=== PATIENT | female | born 1940 | race Caucasian/White ===

== ENCOUNTER → 2021-12-21 14:26 | Outpatient (BNVA) | payer MEDICARE, OTHER, SELFPAY | PROVIDERS: PCP Family Medicine; Visit Provider Family Medicine | DX: N19 Unspecified kidney failure (principal); J30.9 Allergic rhinitis, unspecified; E06.3 Autoimmune thyroiditis; E78.5 Hyperlipidemia, unspecified; I10 Essential (primary) hypertension; E11.9 Type 2 diabetes mellitus without complications | CPT/HCPCS: 80053; 80061; 82607; 83036; 84443 ==

== ENCOUNTER 2022-03-28 19:26 | Emergency (ER) | payer MEDICARE, OTHER, SELFPAY ==
[2022-03-28 20:13] VITALS: BP 161/79; PULSE 84; RESP 18; TEMP 36.9; O2SAT 94; BMI 30.4
--- NOTE | 2022-03-28 23:40 | CTR_ITS ---
PROCEDURE INFORMATION: Exam: CT Abdomen And Pelvis Without Contrast Exam date and time: 03/29/2022 12:13 AM Age: 81 years old Clinical indication: Abdominal pain; Generalized; Prior surgery; Surgery type: Thr; Patient HX: C/O diffuse abd pain. ; Additional info: Recurrent abd pain, constipation, n/v TECHNIQUE: Imaging protocol: Computed tomography of the abdomen and pelvis without contrast. Radiation optimization: All CT scans at this facility use at least one of these dose optimization techniques: automated exposure control; mA and/or kV adjustment per patient size (includes targeted exams where dose is matched to clinical indication); or iterative reconstruction. COMPARISON: No relevant prior studies available. RADIATION DOSE METRICS: Total DLP (mGy-cm): 767.43 FINDINGS: Lungs: The visualized lung sadler show mild bibasilar atelectasis. Diaphragm: There is a small sliding hiatal hernia. Liver: The liver is normal in size and homogeneous density. In the right liver lobe, there is a 7 mm simple appearing cyst. In the rosemary hepatis, there is a cystic mass measuring 6 x 3.2 cm that may represent a pancreatic pseudocyst or a pancreatic mass or a gallbladder mass. The common bile duct is not identified separate from this mass. The mass extends from the rosemary hepatis to the duodenal sweep and head of the pancreas. Gallbladder and bile ducts: The gallbladder is distended. There is prominent thickening of the gallbladder wall. No calcified gallstones are identified. Pancreas: There is a thick-walled cystic mass in the head of the pancreas extending to the rosemary hepatis and to the gallbladder. There is adjacent stranding and inflammatory change in the of the celiac axis, duodenal sweep and proximal SMA. The mass extends to the distal left renal vein causing at least partial obstruction as there are retroperitoneal venous collaterals. Spleen: Normal. No splenomegaly. Adrenal glands: There is a mass in the left adrenal gland measuring 3.2 x 2.4 cm. The right renal appears normal. Kidneys and ureters: No evidence of hydronephrosis. There are vascular calcifications in both renal lian. A small nonobstructive calculus would be difficult to exclude. No ureteral calculus is identified. Stomach and bowel: There is thickening of the gastric wall that may be secondary to gastritis (series 4, images 22 - 37). Underdistension may present a similar picture. There is no evidence of small bowel or colonic obstruction. Appendix: No evidence of appendicitis. Intraperitoneal space: No free air. No significant fluid collection. Vasculature: There is extensive atherosclerotic calcification of the abdominal aorta and its branches. No abdominal aortic aneurysm is identified. In the right posterolateral wall of the proximal infrarenal abdominal aorta, there is a penetrating ulcer measuring 1.2 cm deep x 2.2 cm in craniocaudal extent (series 4, image 35; series 9, image 29). There is ectasia of the infrarenal abdominal aorta, measuring 2.6 cm in anteroposterior dimension. Lymph nodes: No enlarged retroperitoneal or mesenteric lymph nodes. Urinary bladder: The bladder shows a normal contour and is free of calcific opacities. There is mild thickening of the bladder wall that may be secondary to cystitis or to is decompressed state. Reproductive: Unremarkable as visualized. Bones/joints: No acute fracture. There is mild dextroconvex rotoscoliosis of the lumbar spine. Multilevel facet arthrosis, degenerative disc diseaseand vacuum disc. There is mild grade 1 anterolisthesis of L4 on L5. There has been a total left hip arthroplasty that appears in near anatomic alignment. Soft tissues: Unremarkable. CT/CT abdomen pelvis wo con [id number] IMPRESSION: 1. A 6 cm mass in the head of the pancreas extending to the gallbladder, rosemary hepatis and celiac axis. It appears to involve the left renal vein near its confluence with the superior vena cava. This may represent pancreatic neoplasm, gallbladder neoplasm or pseudocyst. Neoplasm is favored. 2. Distended gallbladder with a markedly thickened wall without gallstones. This may be secondary to involvement of the gallbladder by the pancreatic mass or the gallbladder may be secondarily inflamed. Primary gallbladder carcinoma is a consideration. Consider correlation with right upper quadrant sonogram to exclude cholesterol gallstones and cholecystitis. Abdominal MRI and MRCP may be helpful for further characterization. 3. There is a 3.2 cm mass in the left adrenal suspicious for metastatic disease. Density measurements are not consistent with a lipid rich adrenal adenoma. 4. A penetrating ulcer of the immediate infrarenal segment of the of the abdominal aorta. Consider non emergent vascular surgery evaluation if clinically indicated. 5. Gastric wall thickening that may be secondary to gastritis or underdistension. Findings were discussed with SRIKANTH SANTIAGO at 03/29/2022 3:33 AM CDT. COMMENTS: Consistent with the [employer]'s Incidental Findings Committee white paper (J Am Elda Radiol 2017): For any incidental adrenal lesion greater than or equal to 1 cm but less than or equal to 4 cm classified in this report as benign, likely benign, or containing fat (including classification as an adenoma or myelolipoma), no follow-up imaging is recommended per consensus recommendations based on imaging criteria. Further lab evaluation could be pursued if warranted based on clinical findings.
--- NOTE | 2022-03-28 23:41 | ED_ITS ---
Documented by User: BRANDEN Brunner 03/29/22 03:40 HPI - Abdominal Pain General: Chief Complaint: Abdominal Pain Stated Complaint: abd pain Time Seen by Provider: 03/28/22 23:33 History of Present Illness: 81-year-old female comes in today for complaints of recurrent abdominal pain. Patient has been treated with Protonix and Carafate with minimal relief. Patient reports better improvement of pain with acetaminophen. Patient appears nontoxic. Patient appears in mild to moderate pain. Review of Systems General: Reports: 10 or more systems reviewed and unremarkable except in HPI and below ENMT: Denies: throat pain GI: Reports: abdominal pain : Denies: difficulty voiding Physical Exam Const: COMMON NORMALS: alert HENMT: COMMON NORMALS: normocephalic HEAD & SCALP: normocephalic Neck/C-Spine: COMMON NORMALS: full ROM Resp: COMMON NORMALS: normal respiratory effort and clear to auscultation bilaterally AUSCULTATION: clear to auscultation bilaterally Cardio: COMMON NORMALS: regular rate and regular rhythm RATE: regular rate RHYTHM: regular rhythm GI: COMMON NORMALS: Soft to palpation INSPECTION: Yes normal to inspection AUSCULTATION: Yes normoactive bowel sounds PALPATION: Yes Soft to palpation, Yes Tenderness to palpation present (GI) (Mild) and Yes Palpable mass present (Right mid upper quadrant) Neuro: SENSORIUM/ORIENTATION: Yes alert Course ED course: 033, CT report come back abnormal with a possible mass of the gallbladder or pancreas, radiologist was recommending a MRCP for further evaluation. I discussed this with Dr. Brizuela who is going to assume care of the patient for further evaluation and disposition of patient. Vital Signs: Vital signs: Vital Signs Temperature 98.5 F 03/29/22 05:00 Pulse Rate 92 03/29/22 06:41 Respiratory Rate 16 03/29/22 06:41 Blood Pressure 155/79 03/29/22 05:00 Pulse Oximetry 95 03/29/22 06:41 Oxygen Delivery Me thod 03/29/22 05:00 [facility] - Abdominal Pain Medical Decision Making She comes in with recurrent abdominal pain. She reports masses that come and go to her mid abdomen. Bowel sounds are present. Skin is warm and dry. Abdomen soft nontender. Differential diagnosis includes but not limited to hernia, constipation, lipoma, carcinoma. Lab Data : 03/28/22 23:55 03/29/22 01:05 Labs/Radiology: Radiology Impressions Abdomen/Pelvis CT 03/28/22 23:40 IMPRESSION: 1. A 6 cm mass in the head of the pancreas extending to the gallbladder, rosemary hepatis and celiac axis. It appears to involve the left renal vein near its confluence with the superior vena cava. This may represent pancreatic neoplasm, gallbladder neoplasm or pseudocyst. Neoplasm is favored. 2. Distended gallbladder with a markedly thickened wall without gallstones. This may be secondary to involvement of the gallbladder by the pancreatic mass or the gallbladder may be secondarily inflamed. Primary gallbladder carcinoma is a consideration. Consider correlation with right upper quadrant sonogram to exclude cholesterol gallstones and cholecystitis. Abdominal MRI and MRCP may be helpful for further characterization. 3. There is a 3.2 cm mass in the left adrenal suspicious for metastatic disease. Density measurements are not consistent with a lipid rich adrenal adenoma. 4. A penetrating ulcer of the immediate infrarenal segment of the of the abdominal aorta. Consider non emergent vascular surgery evaluation if clinically indicated. 5. Gastric wall thickening that may be secondary to gastritis or underdistension. Findings were discussed with SRIKANTH SANTIAGO at 03/29/2022 3:33 AM CDT. COMMENTS: Consistent with the [employer]'s Incidental Findings Committee white paper (J Am Elda Radiol 2017): For any incidental adrenal lesion greater than or equal to 1 cm but less than or equal to 4 cm classified in this report as benign, likely benign, or containing fat (including classification as an adenoma or myelolipoma), no follow-up imaging is recommended per consensus recommendations based on imaging criteria. Further lab evaluation could be pursued if warranted based on clinical findings. ADDENDUM: 03/29/22 0436 An 11 mm nodule is identified in the soft tissues of the right anterior abdominal wall adjacent to the gallbladder, suspicious for a metastatic deposit (series 4, image 36). Abdomen Ultrasound 03/29/22 03:51 IMPRESSION: 1. Findings consistent with acute cholecystitis. 2. 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 3. Mild dilatation of the common bile duct. MRCP may be helpful for evaluation of possible distal common bile duct obstruction by stone or neoplasm, if clinically indicated. Laboratory Results WBC 7.6 10^3/uL (4.0-10.0) 03/28/22 23:55 RBC 4.12 10^6/uL (4.1-5.3) 03/28/22 23:55 Hgb 12.1 g/dL (11.5-15.3) 03/28/22 23:55 Hct 37.2 % (37.0-47.0) 03/28/22 23:55 MCV 90.3 fl (81-99) 03/28/22 23:55 MCH 29.4 pg (28.0-34.0) 03/28/22 23:55 MCHC 32.5 g/dL (30.0-36.0) 03/28/22 23:55 RDW 13.2 % (12.1-15.1) 03/28/22 23:55 Plt Count 325 10^3/cmm (130-400) 03/28/22 23:55 MPV 10.1 fL (7.4-10.4) 03/28/22 23:55 Neut % (Auto) 68.4 % 03/28/22 23:55 Lymph % (Auto) 21.2 % 03/28/22 23:55 [place] % (Auto) 8.1 % 03/28/22 23:55 Eos % (Auto) 1.2 % 03/28/22 23:55 Baso % (Auto) 0.7 % 03/28/22 23:55 Neut # (Auto) 5.22 10^3/uL (1.8-7.7) 03/28/22 23:55 Lymph # (Auto) 1.6 10^3/uL (0.8-4.8) 03/28/22 23:55 [place] # (Auto) 0.6 10^3/uL (0.2-0.9) 03/28/22 23:55 Eos # (Auto) 0.1 10^3/uL (0.0-0.8) 03/28/22 23:55 Baso # (Auto) 0.1 10^3/uL (0.0-0.1) 03/28/22 23:55 Nucleated RBC % (auto) 0 % 03/28/22 23:55 Nucleated RBCs # 0.0 /100WBC 03/28/22 23:55 Sodium 133 mmol/L (136-145) L 03/29/22 01:05 Potassium 3.2 mmol/L (3.5-5.1) L 03/29/22 01:05 Chloride 95 mmol/L (98-107) L 03/29/22 01:05 Carbon Dioxide 21 mmol/L (22-29) L 03/29/22 01:05 Anion Gap 20.2 (5-19) H 03/29/22 01:05 BUN 13 mg/dL (8-23) 03/29/22 01:05 Creatinine 0.7 mg/dL (0.5-0.9) 03/29/22 01:05 GFR Calculation Not Reportable 03/29/22 01:05 Glucose 112 mg/dL (65-115) 03/29/22 01:05 Calculated Osmolality 277 mOsm/kg (285-295) L 03/29/22 01:05 Calcium 10.0 mg/dL (8.5-10.5) 03/29/22 01:05 Total Bilirubin 0.4 mg/dL (0.15-1.2) 03/29/22 01:05 AST 36 U/L (0-32) H 03/29/22 01:05 ALT 14 U/L (0-33) 03/29/22 01:05 Alkaline Phosphatase 109 U/L (35-105) H 03/29/22 01:05 Total Protein 7.2 g/dL (6.6-8.7) 03/29/22 01:05 Albumin 3.8 g/dL (3.5-5.2) 03/29/22 01:05 Globulin 3.4 g/dL (1.3-4.6) 03/29/22 01:05 Lipase 50 U/L (13-60) 03/29/22 01:05 Discharge Plan Discharge Patient Disposition: Home Clinical Impression: Pancreatic mass Condition: Stable Prescriptions: New hydrocodone-acetaminophen 5-325 mg tablet 1 tab PO Q6H PRN (Reason: pain) Qty: 30 0RF ondansetron HCl 4 mg tablet 4 mg PO Q6H PRN (Reason: nausea and vomiting) Qty: 30 0RF No Action sucralfate [Carafate] 1 gram tablet 1 g PO TID Qty: 90 0RF Rx Instructions: take prior to meal up to tid valsartan-hydrochlorothiazide 160-12.5 mg tablet 1 tab PO DAILY montelukast 10 mg tablet 10 mg PO DAILY fenofibrate micronized 200 mg capsule 200 mg PO DAILY meloxicam 7.5 mg tablet 7.5 mg PO BID levothyroxine 25 mcg capsule 25 mcg PO DAILY pantoprazole 40 mg tablet,delayed release (DR/EC) 40 mg PO BID Qty: 60 1RF Rx Instructions: for stomach Discharge Orders: Discharge ED (Routine); Ordered 03/29/22 Ordered By: Steve Manzo Referrals: Remberto Black DO [Primary Care Provider] - Discharge Diet: Advance as tolerated Discharge Activity: Increase activity as tolerated Patient Instructions: Opioid Safety, Pain Management Activity Restrictions/Additional Instructions: Case management make arrangements for you to follow-up with oncology office. Sign Out Sign Out Data: Patient Sign Out occurred on 03/29/22 at 03:40. Patient's care was discussed, and care was transferred from to Micah Herrera MD. Patient Sign Out occurred on 03/29/22 at 06:23. Patient's care was discussed, and care was transferred from to Steve Manzo DO. Coding Level of Care Code ED Technical Support Consultant for Chg Fwd Exam Detailed Documented by User: Micah Herrera MD 03/29/22 18:16 HPI - Abdominal Pain General: Chief Complaint: Abdominal Pain Stated Complaint: abd pain Time Seen by Provider: 03/28/22 23:33 Course Vital Signs: Vital signs: Vital Signs Temperature 98.5 F 03/29/22 05:00 Pulse Rate 92 03/29/22 06:41 Respiratory Rate 16 03/29/22 06:41 Blood Pressure 155/79 03/29/22 05:00 Pulse Oximetry 95 03/29/22 06:41 Oxygen Delivery Me thod 03/29/22 05:00 MDM - Abdominal Pain Medical Decision Making She comes in with recurrent abdominal pain. She reports masses that come and go to her mid abdomen. Bowel sounds are present. Skin is warm and dry. Abdomen soft nontender. Differential diagnosis includes but not limited to hernia, constipation, lipoma, carcinoma. I discussed this case with Nacoh Santiago NP. I reviewed documentation. I personally saw and evaluated the patient. I discussed results of CT imaging including concern for cancer and plan for ultrasound to better evaluate for cholecystitis. Overall challenging situation. Handed off to Dr. Manzo pending completion of ED evaluation for disposition. Micah Herrera MD Emergency Medicine Lab Data : 03/28/22 23:55 03/29/22 01:05 Labs/Radiology: Radiology Impressions Abdomen/Pelvis CT 03/28/22 23:40 IMPRESSION: 1. A 6 cm mass in the head of the pancreas extending to the gallbladder, rosemary hepatis and celiac axis. It appears to involve the left renal vein near its confluence with the superior vena cava. This may represent pancreatic neoplasm, gallbladder neoplasm or pseudocyst. Neoplasm is favored. 2. Distended gallbladder with a markedly thickened wall without gallstones. This may be secondary to involvement of the gallbladder by the pancreatic mass or the gallbladder may be secondarily inflamed. Primary gallbladder carcinoma is a consideration. Consider correlation with right upper quadrant sonogram to exclude cholesterol gallstones and cholecystitis. Abdominal MRI and MRCP may be helpful for further characterization. 3. There is a 3.2 cm mass in the left adrenal suspicious for metastatic disease. Density measurements are not consistent with a lipid rich adrenal adenoma. 4. A penetrating ulcer of the immediate infrarenal segment of the of the abdominal aorta. Consider non emergent vascular surgery evaluation if clinically indicated. 5. Gastric wall thickening that may be secondary to gastritis or underdistension. Findings were discussed with SRIKANTH SANTIAGO at 03/29/2022 3:33 AM CDT. COMMENTS: Consistent with the [employer]'s Incidental Findings Committee white paper (J Am Elda Radiol 2017): For any incidental adrenal lesion greater than or equal to 1 cm but less than or equal to 4 cm classified in this report as benign, likely benign, or containing fat (including classification as an adenoma or myelolipoma), no follow-up imaging is recommended per consensus recommendations based on imaging criteria. Further lab evaluation could be pursued if warranted based on clinical findings. ADDENDUM: 03/29/22 0436 An 11 mm nodule is identified in the soft tissues of the right anterior abdominal wall adjacent to the gallbladder, suspicious for a metastatic deposit (series 4, image 36). Abdomen Ultrasound 03/29/22 03:51 IMPRESSION: 1. Findings consistent with acute cholecystitis. 2. 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 3. Mild dilatation of the common bile duct. MRCP may be helpful for evaluation of possible distal common bile duct obstruction by stone or neoplasm, if clinically indicated. Laboratory Results WBC 7.6 10^3/uL (4.0-10.0) 03/28/22 23:55 RBC 4.12 10^6/uL (4.1-5.3) 03/28/22 23:55 Hgb 12.1 g/dL (11.5-15.3) 03/28/22 23:55 Hct 37.2 % (37.0-47.0) 03/28/22 23:55 MCV 90.3 fl (81-99) 03/28/22 23:55 MCH 29.4 pg (28.0-34.0) 03/28/22 23:55 MCHC 32.5 g/dL (30.0-36.0) 03/28/22 23:55 RDW 13.2 % (12.1-15.1) 03/28/22 23:55 Plt Count 325 10^3/cmm (130-400) 03/28/22 23:55 MPV 10.1 fL (7.4-10.4) 03/28/22 23:55 Neut % (Auto) 68.4 % 03/28/22 23:55 Lymph % (Auto) 21.2 % 03/28/22 23:55 [place] % (Auto) 8.1 % 03/28/22 23:55 Eos % (Auto) 1.2 % 03/28/22 23:55 Baso % (Auto) 0.7 % 03/28/22 23:55 Neut # (Auto) 5.22 10^3/uL (1.8-7.7) 03/28/22 23:55 Lymph # (Auto) 1.6 10^3/uL (0.8-4.8) 03/28/22 23:55 [place] # (Auto) 0.6 10^3/uL (0.2-0.9) 03/28/22 23:55 Eos # (Auto) 0.1 10^3/uL (0.0-0.8) 03/28/22 23:55 Baso # (Auto) 0.1 10^3/uL (0.0-0.1) 03/28/22 23:55 Nucleated RBC % (auto) 0 % 03/28/22 23:55 Nucleated RBCs # 0.0 /100WBC 03/28/22 23:55 Sodium 133 mmol/L (136-145) L 03/29/22 01:05 Potassium 3.2 mmol/L (3.5-5.1) L 03/29/22 01:05 Chloride 95 mmol/L (98-107) L 03/29/22 01:05 Carbon Dioxide 21 mmol/L (22-29) L 03/29/22 01:05 Anion Gap 20.2 (5-19) H 03/29/22 01:05 BUN 13 mg/dL (8-23) 03/29/22 01:05 Creatinine 0.7 mg/dL (0.5-0.9) 03/29/22 01:05 GFR Calculation Not Reportable 03/29/22 01:05 Glucose 112 mg/dL (65-115) 03/29/22 01:05 Calculated Osmolality 277 mOsm/kg (285-295) L 03/29/22 01:05 Calcium 10.0 mg/dL (8.5-10.5) 03/29/22 01:05 Total Bilirubin 0.4 mg/dL (0.15-1.2) 03/29/22 01:05 AST 36 U/L (0-32) H 03/29/22 01:05 ALT 14 U/L (0-33) 03/29/22 01:05 Alkaline Phosphatase 109 U/L (35-105) H 03/29/22 01:05 Total Protein 7.2 g/dL (6.6-8.7) 03/29/22 01:05 Albumin 3.8 g/dL (3.5-5.2) 03/29/22 01:05 Globulin 3.4 g/dL (1.3-4.6) 03/29/22 01:05 Lipase 50 U/L (13-60) 03/29/22 01:05 Discharge Plan Discharge Patient Disposition: Home Clinical Impression: Pancreatic mass Condition: Stable Prescriptions: New hydrocodone-acetaminophen 5-325 mg tablet 1 tab PO Q6H PRN (Reason: pain) Qty: 30 0RF ondansetron HCl 4 mg tablet 4 mg PO Q6H PRN (Reason: nausea and vomiting) Qty: 30 0RF No Action sucralfate [Carafate] 1 gram tablet 1 g PO TID Qty: 90 0RF Rx Instructions: take prior to meal up to tid valsartan-hydrochlorothiazide 160-12.5 mg tablet 1 tab PO DAILY montelukast 10 mg tablet 10 mg PO DAILY fenofibrate micronized 200 mg capsule 200 mg PO DAILY meloxicam 7.5 mg tablet 7.5 mg PO BID levothyroxine 25 mcg capsule 25 mcg PO DAILY pantoprazole 40 mg tablet,delayed release (DR/EC) 40 mg PO BID Qty: 60 1RF Rx Instructions: for stomach Discharge Orders: Discharge ED (Routine); Ordered 03/29/22 Ordered By: Steve Manzo Referrals: Remberto Black DO [Primary Care Provider] - Discharge Diet: Advance as tolerated Discharge Activity: Increase activity as tolerated Patient Instructions: Opioid Safety, Pain Management Activity Restrictions/Additional Instructions: Case management make arrangements for you to follow-up with oncology office. Sign Out Sign Out Data: Patient Sign Out occurred on 03/29/22 at 03:40. Patient's care was discussed, and care was transferred from to Micah Herrera MD. Patient Sign Out occurred on 03/29/22 at 06:23. Patient's care was discussed, and care was transferred from to Steve Manzo DO. Coding Level of Care Code ED Technical Support Consultant for Chg Fwd Exam Detailed Documented by User: Steve Manzo DO 03/29/22 06:42 HPI - Abdominal Pain General: Chief Complaint: Abdominal Pain Stated Complaint: abd pain Time Seen by Provider: 03/28/22 23:33 Course Vital Signs: Vital signs: Vital Signs Temperature 98.5 F 03/29/22 05:00 Pulse Rate 92 03/29/22 06:41 Respiratory Rate 16 03/29/22 06:41 Blood Pressure 155/79 03/29/22 05:00 Pulse Oximetry 95 03/29/22 06:41 Oxygen Delivery Me thod 03/29/22 05:00 MDM - Abdominal Pain Medical Decision Making She comes in with recurrent abdominal pain. She reports masses that come and go to her mid abdomen. Bowel sounds are present. Skin is warm and dry. Abdomen soft nontender. Differential diagnosis includes but not limited to hernia, constipation, lipoma, carcinoma. I discussed this case with Nacho Santiago NP. I reviewed documentation. I personally saw and evaluated the patient. I discussed results of CT imaging including concern for cancer and plan for ultrasound to better evaluate for cholecystitis. Overall challenging situation. Handed off to Dr. Manzo pending completion of ED evaluation for disposition. Micah Herrera MD Emergency Medicine 03/29/2022 6:39 AM Care assumed from Dr. Herrera at change of shift. Chart reviewed. Patient's pain is much improved when I came in the room she was sleeping comfortably. She notes its positional. She is having a hard time with p.o. intake for the last week or more. There is no sign of biliary duct obstruction at this point although there is 6 tensive involvement of the mass from the head of the pancreatic region of the gallbladder around the celiac artery even potentially the stomach and the adrenal gland. Discussed with the patient that this is highly suspicious for pancreatic cancer that but we cannot be 100% sure until it is been confirmed by biopsy. We will discharge patient home with ondansetron and hydrocodone. Encouraged liquid diet including Sustacal and Ensure. Discussed different things that will probably exacerbate her symptoms. She is already found that pretty much any solid food is troublesome. We will have case management make arrangements for her to follow-up with oncology for further work-up and evaluation in the outpatient setting. Medical Records I reviewed the patient's medical records. Lab Data I reviewed the patient's lab results. : 03/28/22 23:55 03/29/22 01:05 Labs/Radiology: Radiology Impressions Abdomen/Pelvis CT 03/28/22 23:40 IMPRESSION: 1. A 6 cm mass in the head of the pancreas extending to the gallbladder, rosemary hepatis and celiac axis. It appears to involve the left renal vein near its confluence with the superior vena cava. This may represent pancreatic neoplasm, gallbladder neoplasm or pseudocyst. Neoplasm is favored. 2. Distended gallbladder with a markedly thickened wall without gallstones. This may be secondary to involvement of the gallbladder by the pancreatic mass or the gallbladder may be secondarily inflamed. Primary gallbladder carcinoma is a consideration. Consider correlation with right upper quadrant sonogram to exclude cholesterol gallstones and cholecystitis. Abdominal MRI and MRCP may be helpful for further characterization. 3. There is a 3.2 cm mass in the left adrenal suspicious for metastatic disease. Density measurements are not consistent with a lipid rich adrenal adenoma. 4. A penetrating ulcer of the immediate infrarenal segment of the of the abdominal aorta. Consider non emergent vascular surgery evaluation if clinically indicated. 5. Gastric wall thickening that may be secondary to gastritis or underdistension. Findings were discussed with SRIKANTH SANTIAGO at 03/29/2022 3:33 AM CDT. COMMENTS: Consistent with the [employer]'s Incidental Findings Committee white paper (J Am Elda Radiol 2017): For any incidental adrenal lesion greater than or equal to 1 cm but less than or equal to 4 cm classified in this report as benign, likely benign, or containing fat (including classification as an adenoma or myelolipoma), no follow-up imaging is recommended per consensus recommendations based on imaging criteria. Further lab evaluation could be pursued if warranted based on clinical findings. ADDENDUM: 03/29/22 0436 An 11 mm nodule is identified in the soft tissues of the right anterior abdominal wall adjacent to the gallbladder, suspicious for a metastatic deposit (series 4, image 36). Abdomen Ultrasound 03/29/22 03:51 IMPRESSION: 1. Findings consistent with acute cholecystitis. 2. 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 3. Mild dilatation of the common bile duct. MRCP may be helpful for evaluation of possible distal common bile duct obstruction by stone or neoplasm, if clinically indicated. Laboratory Results WBC 7.6 10^3/uL (4.0-10.0) 03/28/22 23:55 RBC 4.12 10^6/uL (4.1-5.3) 03/28/22 23:55 Hgb 12.1 g/dL (11.5-15.3) 03/28/22 23:55 Hct 37.2 % (37.0-47.0) 03/28/22 23:55 MCV 90.3 fl (81-99) 03/28/22 23:55 MCH 29.4 pg (28.0-34.0) 03/28/22 23:55 MCHC 32.5 g/dL (30.0-36.0) 03/28/22 23:55 RDW 13.2 % (12.1-15.1) 03/28/22 23:55 Plt Count 325 10^3/cmm (130-400) 03/28/22 23:55 MPV 10.1 fL (7.4-10.4) 03/28/22 23:55 Neut % (Auto) 68.4 % 03/28/22 23: Lymph % (Auto) 21.2 % 03/28/22 23: [place] % (Auto) 8.1 % 03/28/22 23: Eos % (Auto) 1.2 % 03/28/22 23: Baso % (Auto) 0.7 % 03/28/22 23: Neut # (Auto) 5.22 10^3/uL (1.8-7.7) 03/28/22 23:55 Lymph # (Auto) 1.6 10^3/uL (0.8-4.8) 03/28/22 23:55 [place] # (Auto) 0.6 10^3/uL (0.2-0.9) 03/28/22 23:55 Eos # (Auto) 0.1 10^3/uL (0.0-0.8) 03/28/22 23: Baso # (Auto) 0.1 10^3/uL (0.0-0.1) 03/28/22 23: Nucleated RBC % (auto) 0 % 03/28/22 23: Nucleated RBCs # 0.0 /100WBC 03/28/22 23:55 Sodium 133 mmol/L (136-145) L 03/29/22 01:05 Potassium 3.2 mmol/L (3.5-5.1) L 03/29/22 01:05 Chloride 95 mmol/L (98-107) L 03/29/22 01:05 Carbon Dioxide 21 mmol/L (22-29) L 03/29/22 01:05 Anion Gap 20.2 (5-19) H 03/29/22 01:05 BUN 13 mg/dL (8-23) 03/29/22 01:05 Creatinine 0.7 mg/dL (0.5-0.9) 03/29/22 01:05 GFR Calculation Not Reportable 03/29/22 01:05 Glucose 112 mg/dL (65-115) 03/29/22 01:05 Calculated Osmolality 277 mOsm/kg (285-295) L 03/29/22 01:05 Calcium 10.0 mg/dL (8.5-10.5) 03/29/22 01:05 Total Bilirubin 0.4 mg/dL (0.15-1.2) 03/29/22 01:05 AST 36 U/L (0-32) H 03/29/22 01:05 ALT 14 U/L (0-33) 03/29/22 01:05 Alkaline Phosphatase 109 U/L (35-105) H 03/29/22 01:05 Total Protein 7.2 g/dL (6.6-8.7) 03/29/22 01:05 Albumin 3.8 g/dL (3.5-5.2) 03/29/22 01:05 Globulin 3.4 g/dL (1.3-4.6) 03/29/22 01:05 Lipase 50 U/L (13-60) 03/29/22 01:05 Discharge Plan Discharge Patient Disposition: Home Clinical Impression: Pancreatic mass Condition: Stable Prescriptions: New hydrocodone-acetaminophen 5-325 mg tablet 1 tab PO Q6H PRN (Reason: pain) Qty: 30 0RF ondansetron HCl 4 mg tablet 4 mg PO Q6H PRN (Reason: nausea and vomiting) Qty: 30 0RF No Action sucralfate [Carafate] 1 gram tablet 1 g PO TID Qty: 90 0RF Rx Instructions: take prior to meal up to tid valsartan-hydrochlorothiazide 160-12.5 mg tablet 1 tab PO DAILY montelukast 10 mg tablet 10 mg PO DAILY fenofibrate micronized 200 mg capsule 200 mg PO DAILY meloxicam 7.5 mg tablet 7.5 mg PO BID levothyroxine 25 mcg capsule 25 mcg PO DAILY pantoprazole 40 mg tablet,delayed release (DR/EC) 40 mg PO BID Qty: 60 1RF Rx Instructions: for stomach Discharge Orders: Discharge ED (Routine); Ordered 03/29/22 Ordered By: Steve Manzo Referrals: Remberto Black DO [Primary Care Provider] - Discharge Diet: Advance as tolerated Discharge Activity: Increase activity as tolerated Patient Instructions: Opioid Safety, Pain Management Activity Restrictions/Additional Instructions: Case management make arrangements for you to follow-up with oncology office. Sign Out Sign Out Data: Patient Sign Out occurred on 03/29/22 at 03:40. Patient's care was discussed, and care was transferred from to Micah Herrera MD. Patient Sign Out occurred on 03/29/22 at 06:23. Patient's care was discussed, and care was transferred from to Steve Manzo DO. Coding Level of Care Code ED Technical Support Consultant for Chg Fwd Exam Detailed
[2022-03-29] LABS: Basophils # 0.1 10^3/uL (0.0-0.1); Basophils % 0.7 %; Eosinophils # 0.1 10^3/uL (0.0-0.8); Eosinophils % 1.2 %; Hematocrit 37.2 % (37.0-47.0); Hemoglobin 12.1 g/dL (11.5-15.3); Lymphocytes # 1.6 10^3/uL (0.8-4.8); Lymphocytes % 21.2 %; Mean Corpuscular HGB Conc 32.5 g/dL (30.0-36.0); Mean Corpuscular Hemoglobin 29.4 pg (28.0-34.0); Mean Corpuscular Volume 90.3 fl (81-99); Mean Platelet Volume 10.1 fL (7.4-10.4); Monocytes # 0.6 10^3/uL (0.2-0.9); Monocytes % 8.1 %; Neutrophils # 5.22 10^3/uL (1.8-7.7); Neutrophils % 68.4 %; Nucleated Red Blood Cells % 0 %; Platelet Count 325 10^3/cmm (130-400); Red Blood Count 4.12 10^6/uL (4.1-5.3); Red Cell Distribution Width 13.2 % (12.1-15.1); White Blood Count 7.6 10^3/uL (4.0-10.0)
[2022-03-29 02:01] LABS: Alanine Aminotransferase 14 U/L (0-33); Albumin Level 3.8 g/dL (3.5-5.2); Alkaline Phosphatase 109 U/L (35-105); Aspartate Amino Transferase 36 U/L (0-32); Blood Urea Nitrogen 13 mg/dL (8-23); Carbon Dioxide 21 mmol/L (22-29); Globulin 3.4 g/dL (1.3-4.6); Glucose 112 mg/dL (65-115); Lipase 50 U/L (13-60); Total Bilirubin 0.4 mg/dL (0.15-1.2); Total Protein 7.2 g/dL (6.6-8.7)
[2022-03-29 02:29] LABS: Chloride 95 mmol/L (98-107); Osmolality Calculated 277 mOsm/kg (285-295); Potassium 3.2 mmol/L (3.5-5.1); Sodium 133 mmol/L (136-145)
[2022-03-29 02:32] LABS: Anion Gap 20.2 (5-19)
[2022-03-29] MEDS: morphine 4 mg/mL SDV 1 mL 2 MG IVP (02:49)
[2022-03-29] MEDS: ondansetron 2 mg/ML SDV 2 mL 4 MG IVP (02:49)
[2022-03-29] MEDS: sodium chloride 0.9% 500 ML 999 ML IV (02:49)
--- NOTE | 2022-03-29 03:51 | USR_ITS ---
PROCEDURE INFORMATION: Exam: US Abdomen, Limited; Right Upper Quadrant Exam date and time: 03/29/2022 4:18 AM Age: 81 years old Clinical indication: Abdominal pain; Other: Chronic ruq pain x 2 months; Additional info: Ruq, eval cholecystitis if possible TECHNIQUE: Imaging protocol: Real time ultrasound of the abdomen with image documentation. Limited exam focused on the right upper quadrant. COMPARISON: CT abdomen pelvis wo con [id number] 03/29/2022 12:13 AM FINDINGS: Liver: The liver is normal in size, measuring 16.7 cm in length. It shows normal homogeneous echotexture. Gallbladder: Markedly enlarged gallbladder measuring 17 cm in length. There is layering sludge and the are multiple shadowing, likely cholesterol gallstones. The gallbladder wall thickness is 8 mm, abnormal. The assembler installer structures reports a positive Bazzi's sign. Biliary ducts: The common bile duct measures 10 mm in diameter, mildly enlarged. Pancreas: The pancreas appears unremarkable where seen. Right kidney: The right kidney measures 11.4 x 5.4 x 4.9 cm. There is no hydronephrosis. No renal calculi identified. There is normal renal cortical thickness of 1.6 cm. There is normal renal echogenicity. Aorta: There is no abdominal aortic aneurysm. Portal venous: There is hepatopetal flow in the portal vein. Intraperitoneal space: There is mild perihepatic ascites. US/US abdomen limited [id number] IMPRESSION: 1. Findings consistent with acute cholecystitis. 2. 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 3. Mild dilatation of the common bile duct. MRCP may be helpful for evaluation of possible distal common bile duct obstruction by stone or neoplasm, if clinically indicated.
[2022-03-29 05:00] VITALS: BP 155/79; PULSE 80; RESP 18; TEMP 36.9; O2SAT 95
[2022-03-29 06:41] VITALS: PULSE 92; RESP 16; O2SAT 95
--- NOTE | 2022-03-30 13:31 | DCPLANNER ---
sap project manager had message to schedule a follow up appointment for patient with oncology. sap project manager called Jessica, referral at [facility]. Patients information will be printed and reviewed. Clinic will call patient with appointment information. sap project manager was told that patient would need to follow up with her primary care physician, so additional tests could be ordered. sap project manager called [facility], spoke with Dr. Black's nurse. sap project manager let clinic know that patient was seen in the ER and that patient was referred to oncology. Patient has an appointment scheduled with Dr. Black next week.
== END 2022-03-29 06:44 | disposition home or self-care (01) ==
PROVIDERS: Nurse Practitioner Family; Emergency Provider Family Medicine; PCP Family Medicine
DX: K86.9 Disease of pancreas, unspecified (principal); K82.8 Other specified diseases of gallbladder; K83.8 Other specified diseases of biliary tract; E27.9 Disorder of adrenal gland, unspecified
CPT/HCPCS: 74176; 76705; 80053; 83690; 85025; 96361; 96374; 96375; 99285; J2270; J2405; J7040

== ENCOUNTER 2022-04-23 11:46 | Inpatient (IN) | payer MEDICARE, OTHER, SELFPAY ==
[2022-04-23] VITALS (12 sets, daily range): BP systolic 140–160; BP diastolic 51–78; PULSE 86–95; RESP 14–18; TEMP 36.6–36.8; O2SAT 90–97; BMI 26.6
--- NOTE | 2022-04-23 11:49 | ED_ITS ---
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 Patient tells me that symptoms has been going on for the last 2 weeks however due to significance of pain, patient said to come to the emergency room. Patient reports significant nausea vomiting decreased p.o. intake. Patient tells me she has not been able to hold anything down. Patient has not establish care with any oncologist. Patient denies any fever/chills, cough cough, diarrhea, melena/hematochezia. Denies any chest pain, shortness breath or palpitation. Onset: 2 weeks ago Duration:2 weeks Location:home Severity:moderate Associated symptoms: Reports nausea and vomiting; Deny chest pain, dyspnea, rash or palpitations Review of Systems Const: Denies: fever(s) or chills Eyes: Denies: change in vision ENMT: Denies: mouth pain Card: Denies: chest pain or palpitations Resp: Denies: dyspnea or non-productive cough GI: Reports: abdominal pain (+epigastric abd pain), nausea and vomiting; Denies: diarrhea : Denies: dysuria Musc: Denies: extremity pain Skin/Breast: Denies: rash or new lesions Neuro: Denies: weakness in extremities Psych: Reports: other (Normal mood) Homero/Lymph: Denies: easy bruising [facility] ED PFSH: Medical History (Updated 04/23/22 @ 12:08 by Trevon Fernandez MD) Hypertension Pancreatic mass Social History (Updated 04/23/22 @ 12:08 by Trevon Fernandez MD) Smoking and tobacco status: never smoked Alcohol intake: never Substance/Drug Use: never Physical Exam Const: COMMON NORMALS: alert HENMT: COMMON NORMALS: atraumatic HEAD & SCALP: atraumatic MOUTH: moist mucous membranes abnormal Eye: COMMON NORMALS: EOMs intact bilaterally and conjunctivae normal CONJUNCTIVA: Yes conjunctivae normal Neck/C-Spine: COMMON NORMALS: full ROM and supple Resp: COMMON NORMALS: normal respiratory effort and clear to auscultation bilaterally AUSCULTATION: clear to auscultation bilaterally Cardio: COMMON NORMALS: regular rate RATE: regular rate GI: COMMON NORMALS: Soft to palpation PALPATION: Yes Soft to palpation OTHER: + Moderate tenderness palpation in the midepigastric and right upper quadrant area, firm mass appreciated on palpation of the right upper quadrant, mild tenderness. CVA tenderness or McBurney's point tenderness. Extremity: COMMON NORMALS: full ROM Neuro: SENSORIUM/ORIENTATION: Yes alert MOTOR EXAM: No Abnormal motor strength present and Other motor observations present (no focal motor deficits) Psych: COMMON NORMALS: speech normal SPEECH: Yes normal speech MOOD & AFFECT: Yes euthymic mood Course Vital Signs: Vital signs: Vital Signs Temperature 97.9 F 04/23/22 11:47 Pulse Rate 86 04/23/22 11:47 Respiratory Rate 15 04/23/22 13:23 Blood Pressure 160/78 04/23/22 12:34 Pulse Oximetry 97 04/23/22 11:47 Oxygen Delivery Me thod 04/23/22 11:47 MDM - General Adult Medical Decision Making Patient is an 81-year-old female with a 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 She has right upper quad abdominal fullness and moderate to palpation the right upper quadrant and midepigastric area. White count 5.7. Potassium 3.0. UA is consistent with UTI. Given the fact the patient has had nausea vomiting and decreased p.o. intake in the setting of UTI recently diagnosed cancer, patient will be mated to hospital for further work-up of all of these things. S/p ceftraixone in the ED. Disposition: admission Lab Data : 04/23/22 12:37 04/23/22 12:37 Radiology Impressions Abdomen/Pelvis CT 04/23/22 11:59 IMPRESSION: 1. 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 The soft tissue component extends into the gallbladder neck region and probably into the periportal/caudate hepatic parenchyma with obstruction of the intrahepatic bile ducts at the hepatic hilar level. Another large intrahepatic lesion is noted in the left lobe may represent additional area of tumor extension or metastatic disease/multifocal malignancy such as cholangiocarcinoma. There is regional vascular involvement as described above. Primary malignancy arising from the pancreatic head is much less likely. No pancreatic ductal dilatation. 2. Solid subcutaneous soft tissue nodule in the anterior right upper quadrant and left adrenal mass, suspicious for metastatic disease. 3. Nonacute aortic findings as above. 4. Coronary calcification. Laboratory Results WBC 5.7 10^3/uL (4.0-10.0) 04/23/22 12:37 RBC 4.48 10^6/uL (4.1-5.3) 04/23/22 12:37 Hgb 12.9 g/dL (11.5-15.3) 04/23/22 12:37 Hct 40.1 % (37.0-47.0) 04/23/22 12:37 MCV 89.5 fl (81-99) 04/23/22 12:37 MCH 28.8 pg (28.0-34.0) 04/23/22 12:37 MCHC 32.2 g/dL (30.0-36.0) 04/23/22 12:37 RDW 14.3 % (12.1-15.1) 04/23/22 12:37 Plt Count 300 10^3/cmm (130-400) 04/23/22 12:37 MPV 10.3 fL (7.4-10.4) 04/23/22 12:37 Neut % (Auto) 76.7 % 04/23/22 12:37 Lymph % (Auto) 14.5 % 04/23/22 12:37 Allen % (Auto) 7.6 % 04/23/22 12:37 Eos % (Auto) 0.4 % 04/23/22 12:37 Baso % (Auto) 0.4 % 04/23/22 12:37 Neut # (Auto) 4.35 10^3/uL (1.8-7.7) 04/23/22 12:37 Lymph # (Auto) 0.8 10^3/uL (0.8-4.8) 04/23/22 12:37 Allen # (Auto) 0.4 10^3/uL (0.2-0.9) 04/23/22 12:37 Eos # (Auto) 0.0 10^3/uL (0.0-0.8) 04/23/22 12:37 Baso # (Auto) 0.0 10^3/uL (0.0-0.1) 04/23/22 12:37 Nucleated RBC % (auto) 0 % 04/23/22 12:37 Nucleated RBCs # 0.0 /100WBC 04/23/22 12:37 Sodium 137 mmol/L (136-145) 04/23/22 12:37 Potassium 3.0 mmol/L (3.5-5.1) L 04/23/22 12:37 Chloride 95 mmol/L (98-107) L 04/23/22 12:37 Carbon Dioxide 20 mmol/L (22-29) L 04/23/22 12:37 Anion Gap 25.0 (5-19) H 04/23/22 12:37 BUN 23 mg/dL (8-23) 04/23/22 12:37 Creatinine 0.6 mg/dL (0.5-0.9) 04/23/22 12:37 GFR Calculation Not Reportable 04/23/22 12:37 Glucose 133 mg/dL (65-115) H 04/23/22 12:37 Calculated Osmolality 290 mOsm/kg (285-295) 04/23/22 12:37 Calcium 9.2 mg/dL (8.5-10.5) 04/23/22 12:37 Total Bilirubin 0.6 mg/dL (0.15-1.2) 04/23/22 12:37 AST 39 U/L (0-32) H 04/23/22 12:37 ALT 10 U/L (0-33) 04/23/22 12:37 Alkaline Phosphatase 128 U/L (35-105) H 04/23/22 12:37 Troponin T Baseline 48 ng/L (0-10) H 04/23/22 12:37 Troponin T 120 Minute 45.91 ng/L (0-10) H 04/23/22 14:39 Delta Troponin T -2.09 ABS# (0-10) L 04/23/22 14:39 Total Protein 6.5 g/dL (6.6-8.7) L 04/23/22 12:37 Albumin 3.0 g/dL (3.5-5.2) L 04/23/22 12:37 Globulin 3.5 g/dL (1.3-4.6) 04/23/22 12:37 Lipase 35 U/L (13-60) 04/23/22 12:37 Urine Color Yellow (Yellow) 04/23/22 13:07 Urine Appearance Hazy (CLEAR) A 04/23/22 13:07 Urine pH 6.5 (5-7) 04/23/22 13:07 Ur Specific [place] 1.015 (1.005-1.030) 04/23/22 13:07 Urine Protein Neg (Negative) 04/23/22 13:07 Urine Glucose (UA) Norm (Normal) 04/23/22 13:07 Urine Ketones 1+ (Negative) H 04/23/22 13:07 Urine Blood Neg (Negative) 04/23/22 13:07 Urine Nitrate Positive (Negative) H 04/23/22 13:07 Urine Bilirubin Neg (Negative) 04/23/22 13:07 Urine Urobilinogen 8 mg/dL (Negative) H 04/23/22 13:07 Ur Leukocyte Esterase 1+ (Negative) H 04/23/22 13:07 Urine RBC None /hpf (0-2) 04/23/22 13:07 Urine WBC 15-25 /hpf (0-5) H 04/23/22 13:07 Ur Squamous Epith Cells 5-10 /hpf (0-5) H 04/23/22 13:07 Amorphous Sediment Not Reportable 04/23/22 13:07 Urine Bacteria 3+ /hpf (NONE) H 04/23/22 13:07 Imaging Data Other Imaging: Radiologist's impression: [place] [address] CT Scan Report Signed Patient: Alexus Crowley Unit #: [id number] : 1940 Age/Sex: 81 / F ADM Date: 04/23/22 Loc: ER Room/Bed: Attending Dr: Ordering Provider/Ordering MD: Trevon Fernandez MD Date of Service: 04/23/22 Procedure(s): CT abdomen pelvis w con* [id number] Accession Number(s): [id number] Report Number: [id number] PROCEDURE INFORMATION: Exam: CT Abdomen And Pelvis With Contrast Exam date and time: 04/23/2022 1:43 PM Age: 81 years old Clinical indication: Abdominal pain; Additional info: Abd pain TECHNIQUE: Imaging protocol: Computed tomography of the abdomen and pelvis with contrast. Radiation optimization: All CT scans at this facility use at least one of these dose optimization techniques: automated exposure control; mA and/or kV adjustment per patient size (includes targeted exams where dose is matched to clinical indication); or iterative reconstruction. Contrast material: OMNIPAQUE 350; Contrast volume: 100 ml; Contrast route: INTRAVENOUS (IV);? COMPARISON: CT abdomen pelvis wo con [id number] 03/29/2022 12:13 AM RADIATION DOSE METRICS: Total DLP (mGy-cm): 668.34 FINDINGS: Heart: Mild cardiomegaly with coronary calcification. Liver: Liver is normal in size without cirrhosis. There is a heterogeneous mass occupying the inferior left lobe measuring about 8.5 by 6.4 cm suspicious for malignancy. Another heterogeneous soft tissue mass is noted in the right upper quadrant which may be arising from the gallbladder and extending into the posterior aspect of the periportal liver parenchyma/caudate lobe. The solid-appearing component is seen more anteriorly, measuring about 9.7 x 4.3 cm, exerting mass effect on the main portal vein and proximal right portal vein with significant luminal narrowing. The lower density component appears to be contiguous with a distended gallbladder and is located more posteriorly, measuring 6.5 by 4.3 cm exerting mass effect on the IVC and abutting the right lateral margin of proximal SMA and main portal vein. The left renal vein/IVC junction appears very narrowed and is probably extrinsically compressed. There is a heterogeneous soft tissue mass measuring 2.6 by 2.4 cm, likely exophytic hepatic lesion arising from the posterior left hepatic lobe abutting the pancreatic body region, series 4, image 28. There is also a hypodense hepatic lesion in the medial inferior right hepatic lobe measuring 7 mm, series 4, image 30 which is indeterminate. Gallbladder and bile ducts: There is minimal intrahepatic bile duct dilatation possibly related to biliary obstruction in the hepatic hilar region. Extrahepatic bile duct is partially visualized and is normal in caliber measuring about 4 mm. Pancreas: The visualized chronic parenchyma appears somewhat diffusely atrophic. The pancreatic head and uncinate process is contiguous with or abutting the soft tissue mass in the rosemary hepatis region however it is probably not the primary source of malignancy. Spleen: Normal. No splenomegaly. Adrenal glands: Heterogeneous left adrenal mass suspicious for metastasis, measuring 3.4 by 2.5 cm. Kidneys and ureters: No obstructing calculus. No hydronephrosis. Stomach and bowel: The proximal duodenum and distal gastric antrum is extrinsically compressed. No obvious bowel wall thickening, bowel obstruction or pneumatosis. Moderate stool burden with colonic diverticulosis. Appendix: No evidence of appendicitis. Intraperitoneal space: No free air or ascites. Vasculature: There is a saccular aortic aneurysmal dilatation arising from the right lateral aspect slightly below the renal artery origin, measuring 3.2 by 2.7 cm. Another small fusiform abdominal aortic aneurysm is noted more inferiorly, measuring 2.7 by 2.4 cm. Suprarenal aorta measures about 2.2 cm. Extensive arterial calcification. Lymph nodes: No enlarged lymph nodes. Urinary bladder: Unremarkable as visualized. Reproductive: Normal uterine contour. No adnexal region masses. Bones/joints: Metallic surgical hardware in left hip resulting in streak artifacts partially obscuring adjacent anatomy. Osteopenia. Multilevel vertebral disc degeneration and endplate osteophytes. No acute osseous findings otherwise. Soft tissues: Heterogeneous subcutaneous soft tissue nodules suspicious for metastatic disease in the anterior right upper quadrant measuring 14 x 17 mm. Tiny fat-containing umbilical hernia. CT/CT abdomen pelvis w con* [id number] IMPRESSION: 1. 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 The soft tissue component extends into the gallbladder neck region and probably into the periportal/caudate hepatic parenchyma with obstruction of the intrahepatic bile ducts at the hepatic hilar level. Another large intrahepatic lesion is noted in the left lobe may represent additional area of tumor extension or metastatic disease/multifocal malignancy such as cholangiocarcinoma. There is regional vascular involvement as described above. Primary malignancy arising from the pancreatic head is much less likely. No pancreatic ductal dilatation. 2. Solid subcutaneous soft tissue nodule in the anterior right upper quadrant and left adrenal mass, suspicious for metastatic disease. 3. Nonacute aortic findings as above. 4. Coronary calcification. ? Dictated By: Kenneth Paris MD Signed By: Kenneth Paris MD Signed Date/Time: 04/23/22 1549 Discharge Plan Discharge Patient Disposition: Admitted As Inpatient Clinical Impression: Abdominal pain, Nausea & vomiting Condition: Stable Coding Level of Care Code ED Side Show Entertainer for Chg Fwd Exam Comprehensive
--- NOTE | 2022-04-23 11:59 | CTR_ITS ---
PROCEDURE INFORMATION: Exam: CT Abdomen And Pelvis With Contrast Exam date and time: 04/23/2022 1:43 PM Age: 81 years old Clinical indication: Abdominal pain; Additional info: Abd pain TECHNIQUE: Imaging protocol: Computed tomography of the abdomen and pelvis with contrast. Radiation optimization: All CT scans at this facility use at least one of these dose optimization techniques: automated exposure control; mA and/or kV adjustment per patient size (includes targeted exams where dose is matched to clinical indication); or iterative reconstruction. Contrast material: OMNIPAQUE 350; Contrast volume: 100 ml; Contrast route: INTRAVENOUS (IV); COMPARISON: CT abdomen pelvis wo con [id number] 03/29/2022 12:13 AM RADIATION DOSE METRICS: Total DLP (mGy-cm): 668.34 FINDINGS: Heart: Mild cardiomegaly with coronary calcification. Liver: Liver is normal in size without cirrhosis. There is a heterogeneous mass occupying the inferior left lobe measuring about 8.5 by 6.4 cm suspicious for malignancy. Another heterogeneous soft tissue mass is noted in the right upper quadrant which may be arising from the gallbladder and extending into the posterior aspect of the periportal liver parenchyma/caudate lobe. The solid-appearing component is seen more anteriorly, measuring about 9.7 x 4.3 cm, exerting mass effect on the main portal vein and proximal right portal vein with significant luminal narrowing. The lower density component appears to be contiguous with a distended gallbladder and is located more posteriorly, measuring 6.5 by 4.3 cm exerting mass effect on the IVC and abutting the right lateral margin of proximal SMA and main portal vein. The left renal vein/IVC junction appears very narrowed and is probably extrinsically compressed. There is a heterogeneous soft tissue mass measuring 2.6 by 2.4 cm, likely exophytic hepatic lesion arising from the posterior left hepatic lobe abutting the pancreatic body region, series 4, image 28. There is also a hypodense hepatic lesion in the medial inferior right hepatic lobe measuring 7 mm, series 4, image 30 which is indeterminate. Gallbladder and bile ducts: There is minimal intrahepatic bile duct dilatation possibly related to biliary obstruction in the hepatic hilar region. Extrahepatic bile duct is partially visualized and is normal in caliber measuring about 4 mm. Pancreas: The visualized chronic parenchyma appears somewhat diffusely atrophic. The pancreatic head and uncinate process is contiguous with or abutting the soft tissue mass in the rosemary hepatis region however it is probably not the primary source of malignancy. Spleen: Normal. No splenomegaly. Adrenal glands: Heterogeneous left adrenal mass suspicious for metastasis, measuring 3.4 by 2.5 cm. Kidneys and ureters: No obstructing calculus. No hydronephrosis. Stomach and bowel: The proximal duodenum and distal gastric antrum is extrinsically compressed. No obvious bowel wall thickening, bowel obstruction or pneumatosis. Moderate stool burden with colonic diverticulosis. Appendix: No evidence of appendicitis. Intraperitoneal space: No free air or ascites. Vasculature: There is a saccular aortic aneurysmal dilatation arising from the right lateral aspect slightly below the renal artery origin, measuring 3.2 by 2.7 cm. Another small fusiform abdominal aortic aneurysm is noted more inferiorly, measuring 2.7 by 2.4 cm. Suprarenal aorta measures about 2.2 cm. Extensive arterial calcification. Lymph nodes: No enlarged lymph nodes. Urinary bladder: Unremarkable as visualized. Reproductive: Normal uterine contour. No adnexal region masses. Bones/joints: Metallic surgical hardware in left hip resulting in streak artifacts partially obscuring adjacent anatomy. Osteopenia. Multilevel vertebral disc degeneration and endplate osteophytes. No acute osseous findings otherwise. Soft tissues: Heterogeneous subcutaneous soft tissue nodules suspicious for metastatic disease in the anterior right upper quadrant measuring 14 x 17 mm. Tiny fat-containing umbilical hernia. CT/CT abdomen pelvis w con* [id number] IMPRESSION: 1. 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 The soft tissue component extends into the gallbladder neck region and probably into the periportal/caudate hepatic parenchyma with obstruction of the intrahepatic bile ducts at the hepatic hilar level. Another large intrahepatic lesion is noted in the left lobe may represent additional area of tumor extension or metastatic disease/multifocal malignancy such as cholangiocarcinoma. There is regional vascular involvement as described above. Primary malignancy arising from the pancreatic head is much less likely. No pancreatic ductal dilatation. 2. Solid subcutaneous soft tissue nodule in the anterior right upper quadrant and left adrenal mass, suspicious for metastatic disease. 3. Nonacute aortic findings as above. 4. Coronary calcification.
--- NOTE | 2022-04-23 11:59 | XRR_ITS ---
PROCEDURE INFORMATION: Exam: XR Chest Exam date and time: 04/23/2022 12:27 PM Age: 81 years old Clinical indication: Other: Abd pain TECHNIQUE: Imaging protocol: Radiologic exam of the chest. Views: 1 view. COMPARISON: CT abdomen pelvis wo con [id number] 03/29/2022 12:13 AM FINDINGS: Lungs: There are normal lung volumes without interstitial or airspace opacities. Pleural spaces: There are no pleural effusions or pneumothorax. Heart/Mediastinum: The heart size is at the upper limit of normal. There is a mildly tortuous thoracic aorta. The trachea is in the midline. Bones/joints: No acute abnormalities. Moderate bilateral shoulder degenerative changes are seen. XR/XR chest 1V portable [id number] IMPRESSION: No chest radiographic evidence of acute cardiopulmonary disease.
[2022-04-23] MEDS: ondansetron 2 mg/ML SDV 2 mL 4 MG IVP ×2 (12:25→17:08)
[2022-04-23] MEDS: sodium chloride 0.9% 500 ML IV (12:25)
[2022-04-23 13:03] LABS: Basophils % 0.4 %; Eosinophils % 0.4 %; Hematocrit 40.1 % (37.0-47.0); Hemoglobin 12.9 g/dL (11.5-15.3); Lymphocytes # 0.8 10^3/uL (0.8-4.8); Lymphocytes % 14.5 %; Mean Corpuscular HGB Conc 32.2 g/dL (30.0-36.0); Mean Corpuscular Hemoglobin 28.8 pg (28.0-34.0); Mean Corpuscular Volume 89.5 fl (81-99); Mean Platelet Volume 10.3 fL (7.4-10.4); Monocytes # 0.4 10^3/uL (0.2-0.9); Monocytes % 7.6 %; Neutrophils # 4.35 10^3/uL (1.8-7.7); Neutrophils % 76.7 %; Nucleated Red Blood Cells % 0 %; Platelet Count 300 10^3/cmm (130-400); Red Blood Count 4.48 10^6/uL (4.1-5.3); Red Cell Distribution Width 14.3 % (12.1-15.1); White Blood Count 5.7 10^3/uL (4.0-10.0)
[2022-04-23] MEDS: morphine 4 mg/mL SDV 1 mL IVP ×2 (13:23→20:09)
[2022-04-23 13:26] LABS: Troponin(5th) Baseline 48 ng/L (0-10)
[2022-04-23 13:29] LABS: Alanine Aminotransferase 10 U/L (0-33); Alkaline Phosphatase 128 U/L (35-105); Blood Urea Nitrogen 23 mg/dL (8-23); Calcium 9.2 mg/dL (8.5-10.5); Carbon Dioxide 20 mmol/L (22-29); Chloride 95 mmol/L (98-107); Globulin 3.5 g/dL (1.3-4.6); Glucose 133 mg/dL (65-115); Lipase 35 U/L (13-60); Osmolality Calculated 290 mOsm/kg (285-295); Sodium 137 mmol/L (136-145); Total Bilirubin 0.6 mg/dL (0.15-1.2); Total Protein 6.5 g/dL (6.6-8.7)
[2022-04-23 13:33] LABS: Aspartate Amino Transferase 39 U/L (0-32)
[2022-04-23] MEDS: iohexol 350 mg/mL 100 mL Btl IV (13:45)
[2022-04-23 14:55] LABS: Bilirubin Urine Neg (Negative); Blood Urine Neg (Negative); Glucose Urine UA Norm (Normal); Ketones Urine 1+ (Negative); Nitrate Urine Positive (Negative); Protein Urine Neg (Negative); Specific Gravity, Urine 1.015 (1.005-1.030); Urine Appearance Hazy (CLEAR); Urine Color Yellow (Yellow); Urobilinogen Urine 8 mg/dL (Negative); pH Urine 6.5 (5-7)
[2022-04-23 14:56] LABS: Add Urine Microscopic? YES; Leukocyte Esterase Urine 1+ (Negative)
[2022-04-23 14:57] LABS: Add Urine Culture? Yes; Bacteria Urine 3+ /hpf; WBC Urine 15-25 /hpf (0-5)
[2022-04-23 15:20] LABS: Troponin 5 2HR 45.91 ng/L (0-10)
[2022-04-23 15:21] LABS: Troponin 5 2HR Delta -2.09 ABS# (0-10)
--- NOTE | 2022-04-23 16:27 | USR_ITS ---
PROCEDURE INFORMATION: Exam: US Abdomen, Limited; Right Upper Quadrant Exam date and time: 04/23/2022 4:46 PM Age: 81 years old Clinical indication: Abdominal pain; Other: Severe and complaint mostly epigastric and back; Additional info: Ruq pain TECHNIQUE: Imaging protocol: Real time ultrasound of the abdomen with image documentation. Limited exam focused on the right upper quadrant. COMPARISON: US abdomen limited [id number] 03/29/2022 4:18 AM FINDINGS: Liver: There is a heterogeneous hypoechoic mass occupying the inferior left lobe as noted on recent CT exam, measuring about 9.6 x 6.2 x 9.2 cm suspicious for malignancy. A mostly solid-appearing mass is again noted in the rosemary hepatic is region, measuring about 6.2 x 4 x 7.6 cm. This mass was noted to be contiguous with a dilated gallbladder in is likely neoplastic process arising from the gallbladder. This feature is difficult to demonstrate by the current ultrasound exam. The gallbladder is poorly visualized due to regional bowel gas. The fundal region is moderately distended and contains several echogenic foci which may represent tumefactive sludge and/or calculi. Gallbladder: See Liver finding. There is severe right upper quadrant region pain. Patient is on pain medication. Biliary ducts: The extrahepatic bile duct is partially visualized in the proximal aspect measuring about 6 mm. The distal aspects poorly seen. Mild central intrahepatic bile duct dilatation was noted on CT exam. Pancreas: The pancreas is poorly visualized on this exam. Right kidney: Right kidney is unremarkable. US/US gall bladder [id number] IMPRESSION: 1. Neoplastic process within the left hepatic as noted on CT exam same day earlier. 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 The extent and tumor size is difficult to assess on this exam due to bowel gas. The findings are probably unchanged versus recent CT exam which demonstrated neoplastic process, most likely arising from the gallbladder with probable invasion into the liver with hepatic metastasis or multifocal hepatic lesions. 2. Poorly visualized pancreas. 3. Partially visualized proximal extrahepatic bile duct with no significant dilatation. Mild intrahepatic biliary dilatation was noted on recent CT. 4. Moderate gallbladder distension with echogenic contents suggesting tumefactive sludge and/or calculi. It should be noted that cystic duct obstruction may be present in this setting due to neoplastic process rather than otherwise typical presentation of acute cholecystitis. Severe right upper quadrant region pain may be related to neoplastic process rather than typical sonographic Bazzi sign.
--- NOTE | 2022-04-23 16:27 | MRR_ITS ---
PROCEDURE INFORMATION: Exam: MR Abdomen Without Contrast Exam date and time: 04/23/2022 5:18 PM Age: 81 years old Clinical indication: Pain and condition or disease; Cancer and gallbladder condition and liver condition; Abdomen; Llq; Abdominal tenderness and constipation and mass, lump, or swelling and nausea and vomiting; Abdominal pain; Patient HX: 03/29/22 patient came into er & thru CT and ultrasound discovered pancreas cancer, she hasn't been able to eat or not vomit [id number]; Additional info: Acute biliary obstruction. TECHNIQUE: Imaging protocol: Magnetic resonance imaging of the abdomen without contrast. COMPARISON: CT abdomen pelvis w con* [id number] 04/23/2022 1:43 PM FINDINGS: Liver: Large expansile mass of the left hepatic lobe. The pancreatic head mass seems to be invasive to the rosemary hepatis region. Gallbladder and bile ducts: There is fairly mild left intrahepatic bile duct dilation. No dilation of common bile duct apparent. Pancreas: Large mass centered in the pancreatic head is redemonstrated. Atrophic appearance of the pancreatic body and the pancreatic tail. Spleen: Unremarkable. No splenomegaly. Adrenal glands: Redemonstration of left adrenal gland mass. Normal right adrenal gland. Kidneys and ureters: Unremarkable. No solid mass. No hydronephrosis. Stomach and bowel: No dilation of bowel is identified. The rosemary hepatis portion of mass causes extrinsic compression on proximal duodenal sweep. Intraperitoneal space: No free fluid. 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 Abdominal aorta is nonaneurysmal. Bones/joints: Unremarkable bone marrow signal. Soft tissues: Unremarkable. MR/MR MRCP [id number] IMPRESSION: 1. No acute abdominal abnormality identified. Fairly mild dilation of left intrahepatic bile ducts. 2. No changes in malignant lesions of abdomen compared with the CT scan.
--- NOTE | 2022-04-23 16:32 | CTR_ITS ---
PROCEDURE INFORMATION: Exam: CT Head Without Contrast Exam date and time: 04/23/2022 6:14 PM Age: 81 years old Clinical indication: Condition or disease; Cancer; Metastatic or secondary malignancy of brain; Additional info: Liver mass, R/O brain mets, n/v TECHNIQUE: Imaging protocol: Computed tomography of the head without contrast. Radiation optimization: All CT scans at this facility use at least one of these dose optimization techniques: automated exposure control; mA and/or kV adjustment per patient size (includes targeted exams where dose is matched to clinical indication); or iterative reconstruction. COMPARISON: No relevant prior studies available. RADIATION DOSE METRICS: Total DLP (mGy-cm): 1126.98 FINDINGS: Brain: Mild atrophy. No hemorrhage. Unremarkable white matter. No mass effect. If there is strong clinical concern for metastatic disease, contrast-enhanced MRI may also be considered. Cerebral ventricles: No ventriculomegaly. Paranasal sinuses: Visualized sinuses are unremarkable. No fluid levels. Mastoid air cells: Visualized mastoid air cells are well aerated. Bones/joints: Unremarkable. No acute fracture. Soft tissues: Unremarkable. CT/CT head wo con* [id number] IMPRESSION: No acute intracranial abnormality. See discussion above.
--- NOTE | 2022-04-23 16:33 | P.HP_ITS ---
Providers/Chief Complaint Primary Care Provider: Remberto Black DO Chief Complaint: N/V WEAKNESS History of Present Illness Alexus Crowley is a 81 year old female recently diagnosed with liver mass, who has been set up in [place] for a potential biopsy, hypothyroidism, who presents to [facility] due to recurrent abdominal pain, intractable nausea, vomiting, and pain. Patient tells me that that here in March she w as diagnosed with a liver and or pancreatic mass, she was supposed to be transferred up to [place], however due to bed situation she was not, she is set up to get an outpatient biopsy in [place] of the mass. However has not had a chance to get a biopsy as of yet. She presents [facility] as she continues to have severe right upper quadrant pain, nausea, vomiting, poor oral intake. She denies any jaundice, no bloody or black stools, no lightheadedness, dizziness. Review of Systems Card: Denies: chest pain Resp: Denies: dyspnea GI: Reports: abdominal pain, nausea and vomiting Medications/Allergies Home Medications Medication Instructions Recorded Confirmed Last Taken Type fenofibrate micronized 200 mg 200 mg PO DAILY 03/15/22 04/23/22 04/22/22 History capsule levothyroxine 25 mcg capsule 25 mcg PO DAILY 03/15/22 04/23/22 04/22/22 History montelukast 10 mg tablet 10 mg PO DAILY 03/15/22 04/23/22 04/22/22 History valsartan 160 1 tab PO DAILY 03/15/22 04/23/22 04/22/22 History mg-hydrochlorothiazide 12.5 mg tablet hydrocodone 5 mg-acetaminophen 325 1 - 2 tab PO Q4H PRN pain 2 weeks 04/14/22 04/23/22 Unknown Rx mg tablet #120 tabs aspirin 325 mg tablet 325 mg PO DAILY 04/23/22 04/23/22 04/22/22 History Allergies Allergy/AdvReac Type Severity Reaction Status Date / Time Sulfa (Sulfonamide Allergy Unknown Verified 12/21/21 13:44 Antibiotics) PFSH Acute PFSH: Medical History Hypertension Pancreatic mass Social History Smoking and tobacco status: never smoked Alcohol intake: never Substance/Drug Use: never Vitals/I&O/Wt Last Vital Signs Temp 97.9 F 04/23/22 11:47 Pulse 86 04/23/22 11:47 Resp 15 04/23/22 13:23 BP 160/78 04/23/22 12:34 Pulse Ox 97 04/23/22 11:47 O2 Del Method 04/23/22 11:47 04/23/22 04/23/22 04/23/22 06:59 14:59 22:59 Intake Total 500 / 500 Balance 500 / 500 Physical Exam Const: COMMON NORMALS: no acute distress and patient oriented x3 HENMT: COMMON NORMALS: normocephalic HEAD & SCALP: normocephalic Eye: COMMON NORMALS: Equal, round and reactive pupils present Neck/C-Spine: COMMON NORMALS: no JVD Resp: COMMON NORMALS: normal respiratory effort, No retractions, No use of accessory muscles and clear to auscultation bilaterally AUSCULTATION: clear to auscultation bilaterally Cardio: COMMON NORMALS: no JVD, regular rate, regular rhythm, S1 normal heart sound present and S2 normal heart sound present RATE: regular rate RHYTHM: regular rhythm HEART SOUNDS: S1 normal heart sound present and S2 normal heart sound present GI: COMMON NORMALS: Soft to palpation PALPATION: Yes Soft to palpation OTHER: Abdomen soft, diffusely tender, exquisite right upper quadrant tenderness, decreased bowel sounds, no guarding, no rebound, no rigidity Extremity: COMMON NORMALS: no clubbing, cyanosis or edema, no calf tenderness and no pedal edema Neuro: COMMON NORMALS: patient oriented x3, CN's II-XII intact bilaterally and moves all extremities Psych: COMMON NORMALS: mental status grossly normal Data : 04/23/22 12:37 04/23/22 12:37 A&P Assessment and plan (1) Abdominal pain: (2) Nausea & vomiting: (3) Abdominal pain: (4) Gastritis: (5) Intractable abdominal pain: (6) Intractable nausea and vomiting: (7) Abdominal mass, right upper quadrant: Plan Abdominal mass -Liver versus pancreatic -With intractable pain, nausea, vomiting -With possible cholecystitis Plan -Keep n.p.o. -IV fluids -Zofran for antibiotic coverage -We will order an MRCP -We will also order a gallbladder ultrasound -Blood cultures, CRP, Pro-Darain, GGT -Lovenox for DVT prophylaxis -Full code -We will have to discuss with radiology and oncology, to consider a biopsy here, if indeed this is a liver mass we can see if we can do a biopsy here -Currently there is no urgent concerns for acute ascending cholangitis, does have alk phos elevation, LFT elevation or bili elevation -Potassium replacement therapy Zosyn as above for UTI Attestations Medical Necessity Statement*: Patient requires hospitalization, inpatient, greater than 2 midnight due to abdominal mass, right upper quadrant pain, liver versus gallbladder mass, intractable nausea, intractable pain, Coding Level of Care Code Acute Protohistorian for Chg Fwd Diagnoses Abdominal pain R10.9 Nausea & vomiting R11.2 Abdominal pain R10.9 Gastritis K29.70 Intractable abdominal pain R10.9 Intractable nausea and vomiting R11.2 Abdominal mass, right upper quadrant R19.01
[2022-04-23] MEDS: HYDROmorphone 1 mg/mL INJ 1 mL IVP (17:07)
[2022-04-23 18:43] LABS: Ketone (Acetest) Serum Positive (Negative)
[2022-04-23 18:51] LABS: Ammonia 57 umol/L (11-51); INR 1.17 (0.8-1.2)
[2022-04-23 18:54] LABS: C Reactive Protein 41.5 mg/L (0.0-4.9); Magnesium 1.5 mg/dL (1.7-2.3); Phosphorus 2.3 mg/dL (2.5-4.5)
[2022-04-23 18:55] LABS: Gamma Glutamyl Transferase 230 U/L (5-36); Lactate (Lactic Acid level) 1.4 mmol/L (0.5-2.2); Total Bilirubin 0.5 mg/dL (0.15-1.2)
[2022-04-23 19:02] LABS: Procalcitonin 0.05 ng/mL (0-0.5)
[2022-04-23 19:37] LABS: Thyroid Stimulating Hormone 1.34 uIU/mL (0.27-4.20)
[2022-04-23 19:57] LABS: Cancer Antigen 19 9 7547 U/mL (0-35)
[2022-04-23 19:58] LABS: Estmated Average Glucose 131; Hemoglobin A1C 6.2 % (4.0-6.0)
[2022-04-23] MEDS: enoxaparin 40 mg/0.4 mL Syringe SUBCUT (19:59)
[2022-04-23 20:22] LABS: Carcinoembryonic Antigen 301.5 ng/mL (0.0-4.7)
[2022-04-23 20:45] LABS: Hepatitis A Antibody IgM Non-Reactive (Nonreactive); Hepatitis B Core IgM Non-Reactive (Nonreactive); Hepatitis B Surface Antigen Non-Reactive (Nonreactive); Hepatitis C Virus Antibody Non-Reactive (Nonreactive)
[2022-04-24] VITALS (14 sets, daily range): BP systolic 130–154; BP diastolic 54–74; PULSE 80–97; RESP 16–18; TEMP 36.7–37; O2SAT 91–96
[2022-04-24] MEDS: ondansetron 2 mg/ML SDV 2 mL 4 MG IVP ×2 (00:17→10:01)
[2022-04-24] MEDS: morphine 4 mg/mL SDV 1 mL IVP ×3 (00:17→17:41)
[2022-04-24] MEDS: pantoprazole 40 mg SDV IVP ×2 (01:03→11:02)
[2022-04-24] MEDS: sodium chloride 0.9% 1,000 ML 125 ML IV ×2 (01:03→11:09)
[2022-04-24] MEDS: piperacillin-tazobactam 3.375 GM in sodium chloride 0.9% (plus) 50 ML IV ×3 (01:04→18:45)
[2022-04-24] MEDS: lidocaine 1% 5 ML in potassium chloride premix 100 ML 25 ML IV (02:12)
[2022-04-24 05:35] LABS: Basophils % 0.4 %; Eosinophils # 0.1 10^3/uL (0.0-0.8); Eosinophils % 0.7 %; Hematocrit 38.2 % (37.0-47.0); Hemoglobin 11.8 g/dL (11.5-15.3); Lymphocytes # 1.3 10^3/uL (0.8-4.8); Mean Corpuscular HGB Conc 30.9 g/dL (30.0-36.0); Mean Corpuscular Hemoglobin 28.4 pg (28.0-34.0); Mean Platelet Volume 10.3 fL (7.4-10.4); Monocytes # 0.6 10^3/uL (0.2-0.9); Monocytes % 8.2 %; Neutrophils % 72.3 %; Nucleated Red Blood Cells % 0 %; Platelet Count 337 10^3/cmm (130-400); Red Blood Count 4.15 10^6/uL (4.1-5.3); Red Cell Distribution Width 14.5 % (12.1-15.1); White Blood Count 7.5 10^3/uL (4.0-10.0)
[2022-04-24 05:55] LABS: Alanine Aminotransferase 10 U/L (0-33); Albumin Level 3.1 g/dL (3.5-5.2); Alkaline Phosphatase 129 U/L (35-105); Anion Gap 19.4 (5-19); Aspartate Amino Transferase 50 U/L (0-32); Blood Urea Nitrogen 17 mg/dL (8-23); Calcium 9.2 mg/dL (8.5-10.5); Carbon Dioxide 26 mmol/L (22-29); Chloride 98 mmol/L (98-107); Globulin 3.3 g/dL (1.3-4.6); Glucose 82 mg/dL (65-115); Osmolality Calculated 291 mOsm/kg (285-295); Potassium 3.4 mmol/L (3.5-5.1); Sodium 140 mmol/L (136-145); Total Bilirubin 0.5 mg/dL (0.15-1.2); Total Protein 6.4 g/dL (6.6-8.7)
[2022-04-24] MEDS: levothyroxine 25 mcg Tablet PO (09:54)
[2022-04-24] MEDS: HYDROmorphone 1 mg/mL INJ 1 mL IVP ×2 (11:15→21:02)
--- NOTE | 2022-04-24 15:04 | PM.PN ---
Subjective Subjective: Seen this morning. CEA 300, CA 19?9 7500. MRCP results reviewed. Discussed with patient and her son. They would like to proceed with biopsy and [place] and continue current treatment and [place]. They are not interested in going to [place]. Discussed with Dr. Vences over the phone. He can see patient this Sunday. He recommends to biopsy and then potentially discharge if patient able to discharge. He is also recommended to place a port if patient interested in chemotherapy. Patient is no longer having nausea or vomiting. Was still NPO. We will try ice chips and advance to clear liquids if tolerated. N.p.o. at midnight tonight for biopsy in a.m. Discussed with radiology. They will be able to obtain CT-guided biopsy of liver lesions. Vitals/I&O/Wt Last Vital Signs Temp 98.2 F 04/24/22 12:00 Pulse 82 04/24/22 12:00 Resp 18 04/24/22 12:00 BP 143/64 04/24/22 12:00 Pulse Ox 93 04/24/22 12:00 O2 Del Method 04/24/22 12:00 04/24/22 04/24/22 04/24/22 06:59 14:59 22:59 Intake Total 1155 / 1155 Balance 1155 / 1155 Weight last 48 hrs Weight 74.899 kg Physical Exam Const: COMMON NORMALS: no acute distress and patient oriented x3 HENMT: COMMON NORMALS: normocephalic HEAD & SCALP: normocephalic Eye: COMMON NORMALS: Equal, round and reactive pupils present PUPIL: Yes Equal, round and reactive pupils present Neck/C-Spine: COMMON NORMALS: no JVD Resp: COMMON NORMALS: normal respiratory effort, No retractions, No use of accessory muscles and clear to auscultation bilaterally AUSCULTATION: clear to auscultation bilaterally Cardio: COMMON NORMALS: no JVD, regular rate, regular rhythm, S1 normal heart sound present and S2 normal heart sound present RATE: regular rate RHYTHM: regular rhythm HEART SOUNDS: S1 normal heart sound present and S2 normal heart sound present GI: COMMON NORMALS: Soft to palpation PALPATION: Yes Soft to palpation OTHER: Abdomen soft, diffusely tender, exquisite right upper quadrant tenderness, decreased bowel sounds, no guarding, no rebound, no rigidity Extremity: COMMON NORMALS: no clubbing, cyanosis or edema, no calf tenderness and no pedal edema Neuro: COMMON NORMALS: patient oriented x3, CN's II-XII intact bilaterally and moves all extremities Psych: COMMON NORMALS: mental status grossly normal Data : 04/24/22 05:00 04/24/22 05:00 Micro: Microbiology 04/23/22 13:07 Urine Culture - Preliminary Urine,Clean Catch Gram Negative Rods 04/23/22 18:04 Blood Culture - Preliminary Blood SPECIMEN COLLECTED 04/23/22 18:09 Blood Culture - Preliminary Blood SPECIMEN COLLECTED A&P Assessment and plan (1) Abdominal pain: (2) Nausea & vomiting: (3) Abdominal pain: (4) Gastritis: (5) Intractable abdominal pain: (6) Intractable nausea and vomiting: (7) Abdominal mass, right upper quadrant: Plan Abdominal mass -Liver versus pancreatic -With intractable pain, nausea, vomiting -With possible cholecystitis Plan -Keep n.p.o. -IV fluids -Zofran for antibiotic coverage -MRCP results reviewed. Large mass at pancreatic head invading into rosemary hepatis. Lesion seen on adrenal gland as well. Mets in liver. CEA 300, CA 19?9 7500. ?Discussed with radiology and oncology. We will attempt for biopsy in a.m CT-guided. -Blood cultures negative to date. Urine growing gram-negative rods. -Lovenox for DVT prophylaxis -Full code Zosyn as above for UTI Discussed with patient's son and the patient. Possible DC after biopsy to follow-up with Dr. Vences as an outpatient this Sunday. Continue on D5 normal saline. We will add potassium phosphate to fluids. We will replete magnesium Full code DVT prophylaxis SCDs. Hold Lovenox for biopsy tomorrow. Attestations Medical Necessity Statement*: Patient going for liver biopsy in a.m. Coding Level of Care Code Acute Chief Meteorologist for g Fwd Diagnoses Abdominal pain R10.9 Nausea & vomiting R11.2 Abdominal pain R10.9 Gastritis K29.70 Intractable abdominal pain R10.9 Intractable nausea and vomiting R11.2 Abdominal mass, right upper quadrant R19.01
[2022-04-24] MEDS: magnesium sulfate premix 2 GM/50 ML PIGGYBACK IV (16:35)
[2022-04-25] VITALS (15 sets, daily range): BP systolic 138–167; BP diastolic 66–80; PULSE 60–89; RESP 16–18; TEMP 36.4–37.3; O2SAT 90–95
[2022-04-25] MEDS: pantoprazole 40 mg SDV IVP ×2 (01:11→11:49)
[2022-04-25] MEDS: piperacillin-tazobactam 3.375 GM in sodium chloride 0.9% (plus) 50 ML IV ×3 (01:11→18:25)
[2022-04-25] MEDS: morphine 4 mg/mL SDV 1 mL IVP ×4 (02:01→18:26)
[2022-04-25 05:43] LABS: Alanine Aminotransferase 9 U/L (0-33); Albumin Level 2.7 g/dL (3.5-5.2); Alkaline Phosphatase 113 U/L (35-105); Aspartate Amino Transferase 36 U/L (0-32); Blood Urea Nitrogen 11 mg/dL (8-23); Calcium 8.8 mg/dL (8.5-10.5); Carbon Dioxide 28 mmol/L (22-29); Glucose 94 mg/dL (65-115); Magnesium 1.7 mg/dL (1.7-2.3); Phosphorus 3.2 mg/dL (2.5-4.5); Total Bilirubin 0.5 mg/dL (0.15-1.2); Total Protein 5.7 g/dL (6.6-8.7)
[2022-04-25 05:59] LABS: Anion Gap 16.8 (5-19); Chloride 100 mmol/L (98-107); Osmolality Calculated 293 mOsm/kg (285-295); Sodium 142 mmol/L (136-145)
[2022-04-25 06:02] LABS: Potassium 2.8 mmol/L (3.5-5.1)
[2022-04-25] MEDS: lidocaine 1% 5 ML in potassium chloride premix 100 ML 25 ML IV ×2 (06:57→12:58)
[2022-04-25] MEDS: HYDROmorphone 1 mg/mL INJ 1 mL IVP ×3 (08:45→22:30)
[2022-04-25] MEDS: levothyroxine 25 mcg Tablet PO (08:46)
--- NOTE | 2022-04-25 10:50 | PC.CHAP ---
Pastoral Care Encounter/Spiritual Assessment Type of Contact [] Declined correctional sergeant visit [] Patient/Family/Request visit [] Outpatient visit [] Follow-up visit [] Physician referral [] Code/Alert [x] Routine visit [] Staff referral [] Actively dying [] Patient sleeping [] Family support [] [] Out of room [] Palliative care [] [] Receiving care in room [] Pre-surgical visit [] Trauma [] Long length of stay [] ICU visit [] Other: Relational/Emotional Strength [x] Patient feels connected with others/family/visitors/staff [] Distress [] Loneliness/isolation [] Abandonment Spirituality of Patient [x] Person of Jyoti [] Attends Zoroastrian of their Jyoti [] Believes in Prayer [] Reads Bible or Hoahaoism materials [] There are Spiritual issues to be addressed Executive Creative Director Interventions [x] Prayer [] Active listening [] Non-anxious presence [] Spiritual/emotional support [] Crisis/trauma care [] Spiritual counseling [] Bereavement support [] Provided bereavement packet [x] Provided Bible/devotional materials [] Provided toy/stuffed animal, coloring book to patient or family member [] Provided Communion [] Anointing/[place] [] Salvation [] Completed spiritual assessment [] Other: Impact on Illness or Injury [] Angry [] Fearful [] Anxious [] Often cries [] Exhaustion [] Unable to work [] Unable to attend mu-ism [] Unable to walk/stand [] Unable to read [] Unable to drive [] Unable to eat/drink [] Unable to sleep [] Unable to be with family [] Patient intubated [] Other: Summary Time spent with patient
--- NOTE | 2022-04-25 10:53 | PC.CHAP ---
Pastoral Care Encounter/Spiritual Assessment Type of Contact [] Declined chip silo tender visit [] Patient/Family/Request visit [] Outpatient visit [] Follow-up visit [] Physician referral [] Code/Alert [] Routine visit [] Staff referral [] Actively dying [] Patient sleeping [] Family support [] [] Out of room [] Palliative care [] [] Receiving care in room [] Pre-surgical visit [] Trauma [] Long length of stay [] ICU visit [] Other: Relational/Emotional Strength [] Patient feels connected with others/family/visitors/staff [] Distress [] Loneliness/isolation [] Abandonment Spirituality of Patient [] Person of Jyoti [] Attends Jewish of their Jyoti [] Believes in Prayer [] Reads Bible or Adventism materials [] There are Spiritual issues to be addressed Medical Coding Manager Interventions [] Prayer [] Active listening [] Non-anxious presence [] Spiritual/emotional support [] Crisis/trauma care [] Spiritual counseling [] Bereavement support [] Provided bereavement packet [] Provided Bible/devotional materials [] Provided toy/stuffed animal, coloring book to patient or family member [] Provided Communion [] Anointing/[place] [] Salvation [] Completed spiritual assessment [] Other: Impact on Illness or Injury [] Angry [] Fearful [] Anxious [] Often cries [] Exhaustion [] Unable to work [] Unable to attend confucianist [] Unable to walk/stand [] Unable to read [] Unable to drive [] Unable to eat/drink [] Unable to sleep [] Unable to be with family [] Patient intubated [] Other: Summary Time spent with patient
[2022-04-25] MEDS: dextrose 5%-ns + KCl 40 40 MEQ/1,000 ML BAG 100 MEQ IV (12:58)
--- NOTE | 2022-04-25 15:01 | PM.PN ---
Subjective Subjective: Seen this morning. Pain is well controlled on regimen that we have her on. She is still n.p.o. Will be going for her biopsy today for liver lesions. She will also be getting a Mediport this . Vitals/I&O/Wt Last Vital Signs Temp 97.6 F 04/25/22 12:00 Pulse 73 04/25/22 12:00 Resp 18 04/25/22 12:00 BP 151/66 04/25/22 12:00 Pulse Ox 90 04/25/22 12:00 O2 Del Method 04/25/22 12:00 04/25/22 04/25/22 04/25/22 06:59 14:59 22:59 Intake Total 2109.5455 / 2108.5455 Balance 2108.5455 / 2108.5455 Weight last 48 hrs Weight 74.899 kg Physical Exam Const: COMMON NORMALS: no acute distress and patient oriented x3 HENMT: COMMON NORMALS: normocephalic HEAD & SCALP: normocephalic Eye: COMMON NORMALS: Equal, round and reactive pupils present PUPIL: Yes Equal, round and reactive pupils present Neck/C-Spine: COMMON NORMALS: no JVD Resp: COMMON NORMALS: normal respiratory effort, No retractions, No use of accessory muscles and clear to auscultation bilaterally AUSCULTATION: clear to auscultation bilaterally Cardio: COMMON NORMALS: no JVD, regular rate, regular rhythm, S1 normal heart sound present and S2 normal heart sound present RATE: regular rate RHYTHM: regular rhythm HEART SOUNDS: S1 normal heart sound present and S2 normal heart sound present GI: COMMON NORMALS: Soft to palpation PALPATION: Yes Soft to palpation OTHER: Abdomen soft, diffusely tender, exquisite right upper quadrant tenderness, decreased bowel sounds, no guarding, no rebound, no rigidity Extremity: COMMON NORMALS: no clubbing, cyanosis or edema, no calf tenderness and no pedal edema Neuro: COMMON NORMALS: patient oriented x3, CN's II-XII intact bilaterally and moves all extremities Psych: COMMON NORMALS: mental status grossly normal Data : 04/24/22 05:00 04/25/22 04:18 Micro: Microbiology 04/23/22 18:04 Blood Culture - Preliminary Blood NEGATIVE TO DATE 04/23/22 18:09 Blood Culture - Preliminary Blood NEGATIVE TO DATE 04/23/22 13:07 Urine Culture - Preliminary Urine,Clean Catch Gram Negative Rods A&P Assessment and plan (1) Abdominal pain: (2) Nausea & vomiting: (3) Abdominal pain: (4) Gastritis: (5) Intractable abdominal pain: (6) Intractable nausea and vomiting: (7) Abdominal mass, right upper quadrant: Plan Pancreatic head mass with lesions extending to liver and adrenals -With intractable pain, nausea, vomiting -With possible cholecystitis Plan -Keep n.p.o. -IV fluids -Zofran for antibiotic coverage -MRCP results reviewed. Large mass at pancreatic head invading into rosemary hepatis. Lesion seen on adrenal gland as well. Mets in liver. CEA 300, CA 19?9 7500. ?Discussed with radiology and oncology. Pt to go for liver biopsy today. -Blood cultures negative to date. Urine growing gram-negative rods. -Lovenox for DVT prophylaxis -Full code Zosyn as above for UTI - mediport to be placed. dr. strange consulted. Discussed with patient's son and the patient. Possible DC after biopsy to follow-up with Dr. Vences as an outpatient this Sunday. NPO FOR BIOPSY TODAY Continue on D5 normal saline. replete potassium today recheck bmp in afternoon Full code DVT prophylaxis SCDs. Hold Lovenox for biopsy tomorrow. Attestations Medical Necessity Statement*: biopsy today. Coding Level of Care Code Acute Compatibility Test Engineer for g Fwd Diagnoses Abdominal pain R10.9 Nausea & vomiting R11.2 Abdominal pain R10.9 Gastritis K29.70 Intractable abdominal pain R10.9 Intractable nausea and vomiting R11.2 Abdominal mass, right upper quadrant R19.01
[2022-04-25 16:19] LABS: Anion Gap 15.2 (5-19); Blood Urea Nitrogen 10 mg/dL (8-23); Carbon Dioxide 27 mmol/L (22-29); Chloride 105 mmol/L (98-107); Glucose 113 mg/dL (65-115); Osmolality Calculated 296 mOsm/kg (285-295); Potassium 4.2 mmol/L (3.5-5.1); Sodium 143 mmol/L (136-145)
[2022-04-25] MEDS: dextrose 5%-sod chloride 0.9% 1,000 ML 75 ML IV (19:06)
[2022-04-26] VITALS (22 sets, daily range): BP systolic 116–207; BP diastolic 67–131; PULSE 76–90; RESP 14–21; TEMP 35.9–37.4; O2SAT 92–98
[2022-04-26] MEDS: piperacillin-tazobactam 3.375 GM in sodium chloride 0.9% (plus) 50 ML IV ×3 (00:36→18:35)
[2022-04-26] MEDS: pantoprazole 40 mg SDV IVP ×2 (00:36→12:59)
[2022-04-26] MEDS: morphine 4 mg/mL SDV 1 mL IVP ×2 (01:20→12:59)
[2022-04-26] MEDS: HYDROmorphone 1 mg/mL INJ 1 mL IVP ×2 (04:12→10:02)
[2022-04-26 05:32] LABS: Anion Gap 14.3 (5-19); Blood Urea Nitrogen 8 mg/dL (8-23); Calcium 8.6 mg/dL (8.5-10.5); Carbon Dioxide 26 mmol/L (22-29); Chloride 106 mmol/L (98-107); Glucose 115 mg/dL (65-115); Magnesium 1.4 mg/dL (1.7-2.3); Osmolality Calculated 295 mOsm/kg (285-295); Potassium 3.3 mmol/L (3.5-5.1); Sodium 143 mmol/L (136-145)
[2022-04-26] MEDS: sodium chloride 0.9% 1,000 ML 30 ML IV (07:38)
--- NOTE | 2022-04-26 08:00 | US_ITS ---
WS: [id number] INDICATION: Liver mass TECHNIQUE: Ultrasound guided biopsy liver mass. Sedation with fentanyl and Versed was administered in the GI suite. FINDINGS: The procedure including risks, benefits, and complications were discussed with the patient who agreed to proceed. Using sterile technique, the patient was prepped and draped in usual sterile f ashion. Timeout was performed. After 1% lidocaine, using ultrasound guidance, 5 18-gauge cores were o btained of the LEFT liver mass. No immediate complications. Pathology is pending. US/US biopsy liver [id number] IMPRESSION: Uncomplicated ultrasound guided liver biopsy.
[2022-04-26] MEDS: fentaNYL 50 mcg/mL INJ 2mL IVP (08:28)
[2022-04-26] MEDS: midazolam 1 mg/mL INJ 2 mL 2 MG IVP (08:31)
[2022-04-26] MEDS: dextrose 5%-sod chloride 0.9% 1,000 ML 75 ML IV (10:05)
[2022-04-26] MEDS: potassium chloride premix 100 ML 25 MEQ IV (10:08)
[2022-04-26] MEDS: levothyroxine 25 mcg Tablet PO (10:08)
--- NOTE | 2022-04-26 14:10 | PM.CONSULT ---
Providers/Reason For Consult Consulting Physician/Specialty*: Dr. Dennis Bullard, DO/General surgery Reason for Consult*: Need for Mediport placement Attending Physician: Sharon Camejo MD Primary Care Provider: Remberto Black DO History of Present Illness History of Present Illness Alexus Crowley is a 81 year old female, with pancreatic and liver masses, the presented to the hospital with right upper quadrant abdominal pain nausea and emesis. She underwent a liver biopsy today. Oncology is requesting Mediport placement. Review of Systems General: Reports: 10 or more systems reviewed and unremarkable except in HPI and below Medications/Allergies Home Medications Medication Instructions Recorded Confirmed Last Taken Type fenofibrate micronized 200 mg 200 mg PO DAILY 03/15/22 04/23/22 04/22/22 History capsule levothyroxine 25 mcg capsule 25 mcg PO DAILY 03/15/22 04/23/22 04/22/22 History montelukast 10 mg tablet 10 mg PO DAILY 03/15/22 04/23/22 04/22/22 History valsartan 160 1 tab PO DAILY 03/15/22 04/23/22 04/22/22 History mg-hydrochlorothiazide 12.5 mg tablet hydrocodone 5 mg-acetaminophen 325 1 - 2 tab PO Q4H PRN pain 2 weeks 04/14/22 04/23/22 Unknown Rx mg tablet #120 tabs aspirin 325 mg tablet 325 mg PO DAILY 04/23/22 04/23/22 04/22/22 History Allergies Allergy/AdvReac Type Severity Reaction Status Date / Time Sulfa (Sulfonamide Allergy Unknown Verified 12/21/21 13:44 Antibiotics) Current Medications Generic Name Dose Route Start Last Admin Trade Name Freq PRN Reason Stop Dose Admin Enoxaparin Sodium 40 mg 04/23/22 19:00 04/23/22 19:59 Enoxaparin 40 Mg/0.4 Ml Syringe SUBCUT 40 mg Q24H DENIZ Administration Hydromorphone HCl 1 mg 04/23/22 16:27 04/26/22 10:02 Hydromorphone 1 Mg/Ml Inj 1 Ml IVP 1 mg Q4H PRN Administration pain Piperacillin Sod/Tazobactam 50 mls @ 12.5 mls/hr 04/23/22 17:30 04/26/22 10:09 Sod 3.375 gm/ Sodium Chloride IV 12.5 mls/hr Q8H DENIZ Administration Dextrose/Sodium Chloride 1,000 mls @ 75 mls/hr 04/25/22 19:15 04/26/22 10:05 Dextrose 5%-Sod Chloride 0.9% IV 75 mls/hr .[id number] DENIZ Administration Sodium Chloride 1,000 mls @ 30 mls/hr 04/26/22 07:30 04/26/22 09:20 Sodium Chloride 0.9% IV Infused .Q24H DENIZ Infusion Levothyroxine Sodium 25 mcg 04/24/22 09:00 04/26/22 10:08 Levothyroxine 25 Mcg Tablet PO 25 mcg DAILY DENIZ Administration Morphine Sulfate 4 mg 04/23/22 18:27 04/26/22 12:59 Morphine 4 Mg/Ml Sdv 1 Ml IVP 4 mg Q4H PRN Administration SEVERE PAIN Ondansetron HCl 4 mg 04/23/22 16:27 04/24/22 10:01 Ondansetron 2 Mg/Ml Sdv 2 Ml IVP 4 mg Q4H PRN Administration NAUSEA AND VOMITING Pantoprazole Sodium 40 mg 04/23/22 18:27 04/26/22 12:59 Pantoprazole 40 Mg Sdv IVP 40 mg Q12H DENIZ Administration PFSH Acute PFSH: Medical History (Updated 04/26/22 @ 14:12 by Dennis Bullard DO) Hypertension Pancreatic mass Social History Smoking and tobacco status: never smoked Alcohol intake: never Vitals/I&O/Wt Last Vital Signs Temp 98.3 F 04/26/22 12:00 Pulse 85 04/26/22 12:00 Resp 17 04/26/22 12:59 BP 160/75 04/26/22 12:00 Pulse Ox 96 04/26/22 12:00 O2 Del Method 04/26/22 12:00 O2 Flow Rate 2 04/26/22 09:15 04/25/22 04/26/22 04/26/22 22:59 06:59 14:59 Intake Total 155 / 2264.5455 2650 / 2650 Balance 155 / 2264.5455 2650 / 2650 Physical Exam Narrative: General : Patient is well developed , no acute distress, oriented x3 Head : Normal cephalic, a-traumatic. Ears : Pinnae and external canal are normal. Hearing is normal. Eyes : PERRLA, Sclera and injection are normal. No conjunctival discharge. Nose : Mucous membranes are without erythema. Throat : buccal mucosa is normal, gums are without significant recession or hypertrophy. Lungs : Equal chest rise bilaterally, no use of accessory muscles, trachea is midline. Cor : Rate and rhythm are normal. Abdomen : Soft, ND, mild right upper quadrant tenderness, no g/r/m Extremities : No edema, no cyanosis or clubbing, dorsalis pedis pulses are present bilaterally, non-tender to palpation of calves. Upper extremities are normal bilaterally. Back : non-tender to palpation, no CVA tenderness. Neuro : CN II - XII intact, Upper and lower extremities have equal and full strength Data : 04/24/22 05:00 04/26/22 04:39 Micro: Microbiology 04/23/22 13:07 Urine Culture - Final Urine,Clean Catch Escherichia coli A&P Assessment and plan (1) Liver mass: (2) Pancreatic mass: Plan N.p.o. after midnight Mediport placement tomorrow The risks and benefits of the procedure, including but not limited to, bleeding, infection, infection requiring Mediport removal antibiotic therapy and repeat surgery, damage to surrounding structures, scar, numbness, pain, pneumothorax requiring thoracostomy tube, were explained to the patient. He/She is understanding of the risks and wishes to proceed. 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
--- NOTE | 2022-04-26 14:33 | P.PN_ITS ---
Subjective Subjective: Seen this morning. She is status post liver biopsy. Tolerating clear liquids. We will advance diet. She will go for Mediport placement in a.m. Vitals/I&O/Wt Last Vital Signs Temp 98.3 F 04/26/22 12:00 Pulse 85 04/26/22 12:00 Resp 17 04/26/22 12:59 BP 160/75 04/26/22 12:00 Pulse Ox 96 04/26/22 12:00 O2 Del Method 04/26/22 12:00 O2 Flow Rate 2 04/26/22 09:15 04/25/22 04/26/22 04/26/22 22:59 06:59 14:59 Intake Total 155 / 2264.5455 2650 / 2650 Balance 155 / 2264.5455 2650 / 2650 Physical Exam Const: COMMON NORMALS: no acute distress and patient oriented x3 HENMT: COMMON NORMALS: normocephalic HEAD & SCALP: normocephalic Eye: COMMON NORMALS: Equal, round and reactive pupils present PUPIL: Yes Equal, round and reactive pupils present Neck/C-Spine: COMMON NORMALS: no JVD Resp: COMMON NORMALS: normal respiratory effort, No retractions, No use of accessory muscles and clear to auscultation bilaterally AUSCULTATION: clear to auscultation bilaterally Cardio: COMMON NORMALS: no JVD, regular rate, regular rhythm, S1 normal heart sound present and S2 normal heart sound present RATE: regular rate RHYTHM: regular rhythm HEART SOUNDS: S1 normal heart sound present and S2 normal heart sound present GI: COMMON NORMALS: Soft to palpation PALPATION: Yes Soft to palpation OTHER: Abdomen soft, diffusely tender, exquisite right upper quadrant tenderness, decreased bowel sounds, no guarding, no rebound, no rigidity Extremity: COMMON NORMALS: no clubbing, cyanosis or edema, no calf tenderness and no pedal edema Neuro: COMMON NORMALS: patient oriented x3, CN's II-XII intact bilaterally and moves all extremities Psych: COMMON NORMALS: mental status grossly normal Data : 04/24/22 05:00 04/26/22 04:39 Micro: Microbiology 04/23/22 13:07 Urine Culture - Final Urine,Clean Catch Escherichia coli A&P Assessment and plan (1) Abdominal pain: (2) Nausea & vomiting: (3) Abdominal pain: (4) Gastritis: (5) Intractable abdominal pain: (6) Intractable nausea and vomiting: (7) Abdominal mass, right upper quadrant: Plan Pancreatic 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 Large mass at pancreatic head invading into rosemary hepatis. Lesion seen on adrenal gland as well. Mets in liver. CEA 300, CA 19?9 7500. ?Discussed with radiology and oncology. Patient status post liver biopsy today. Pathology pending. -Blood cultures negative to date. Urine growing gram-negative rods. -Lovenox for DVT prophylaxis -Full code Zosyn as above for UTI - mediport to be placed. dr. strange consulted. -N.p.o. midnight for Mediport placement in a.m. ? Patient had liver biopsy today. Start on GI soft diet. Optimize pain control OxyContin 10 twice daily, oxycodone every 4-6 hours as needed for breakthrough. Stop Dilaudid. Stop morphine. She will follow-up with Dr. Vences on Sunday at 8 AM for her oncology appointment. Continue on D5 normal saline. replete potassium today recheck bmp in afternoon Full code DVT prophylaxis SCDs. Hold Lovenox for biopsy tomorrow. Attestations Medical Necessity Statement*: Mediport placement in a.m. and then discharge. 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
[2022-04-26] MEDS: oxyCODONE 10 mg ER (12 HR) Tablet PO (14:46)
[2022-04-26] MEDS: magnesium sulfate premix 4 GM/100 ML PREMIX IV (14:47)
[2022-04-26] MEDS: sennosides-docusate Tablet 1 TAB PO ×2 (14:47→18:36)
--- NOTE | 2022-04-26 16:37 | XRR_ITS ---
PROCEDURE INFORMATION: Exam: XR Chest Exam date and time: 04/26/2022 5:00 PM Age: 81 years old Clinical indication: Other: Hypoxia TECHNIQUE: Imaging protocol: Radiologic exam of the chest. Views: 1 view. COMPARISON: CR XR chest 1V portable [id number] 04/23/2022 12:27 PM FINDINGS: Lungs: Unremarkable. No consolidation. Pleural spaces: Trace left pleural effusion suspected. Heart/Mediastinum: Cardiomegaly. Bones/joints: Unremarkable. XR/XR chest 1V portable [id number] IMPRESSION: 1. Cardiomegaly. 2. Trace left pleural effusion suspected.
[2022-04-26] MEDS: oxyCODONE-APAP 5-325 mg Tablet 1 TAB PO (18:36)
[2022-04-27] VITALS (23 sets, daily range): BP systolic 131–188; BP diastolic 65–99; PULSE 46–95; RESP 14–18; TEMP 36.2–37.1; O2SAT 92–98
--- NOTE | 2022-04-27 | SCC_ITS ---
Procedure done: Mediport insertion 3 seconds of fluoroscopic guidance, for a cumulative dose of 0.5 mGy, was provided to Dr. Bullard by the radiology department. C-arm images of the chest were saved for the patient's permanent record. [facility]
[2022-04-27] MEDS: pantoprazole 40 mg SDV IVP ×2 (00:39→12:40)
[2022-04-27] MEDS: oxyCODONE 10 mg ER (12 HR) Tablet PO ×2 (00:39→12:40)
[2022-04-27] MEDS: piperacillin-tazobactam 3.375 GM in sodium chloride 0.9% (plus) 50 ML IV ×3 (00:40→17:16)
[2022-04-27] MEDS: dextrose 5%-sod chloride 0.9% 1,000 ML 75 ML IV ×2 (00:40→21:29)
[2022-04-27] MEDS: oxyCODONE-APAP 5-325 mg Tablet 1 TAB PO ×3 (04:01→17:15)
[2022-04-27 07:02] LABS: Anion Gap 14.2 (5-19); Blood Urea Nitrogen 4 mg/dL (8-23); Calcium 8.8 mg/dL (8.5-10.5); Carbon Dioxide 28 mmol/L (22-29); Chloride 101 mmol/L (98-107); Glucose 152 mg/dL (65-115); Magnesium 1.5 mg/dL (1.7-2.3); Osmolality Calculated 290 mOsm/kg (285-295); Phosphorus 2.2 mg/dL (2.5-4.5); Potassium 3.2 mmol/L (3.5-5.1); Sodium 140 mmol/L (136-145)
--- NOTE | 2022-04-27 07:11 | PC.NURSE ---
Bedside Report given to Margarette HUNG at this time
[2022-04-27] MEDS: levothyroxine 25 mcg Tablet PO (08:02)
[2022-04-27] MEDS: ondansetron 2 mg/ML SDV 2 mL 4 MG IVP ×2 (08:02→17:16)
[2022-04-27] MEDS: losartan 50 mg Tablet PO (09:45)
[2022-04-27] MEDS: hydroCHLOROthiazide 25 mg Tablet 12.5 MG PO (09:45)
--- NOTE | 2022-04-27 14:14 | W.PM.OPSUD ---
Surgery/Procedure H&P Update DATE OF PROCEDURE: April 27, 2022 DATE H&P PERFORMED: 04/26/22 PLANNED PROCEDURE: Operation Date: 04/27/22 14:20 Proposed Procedures p Portacath Placement(Not Applicable) - Dennis Bullard DO
[2022-04-27] MEDS: fentaNYL 50 mcg/mL INJ 2mL IVP ×2 (14:42→16:19)
[2022-04-27] MEDS: sodium chloride 0.9% 1,000 ML 30 ML IV (14:44)
--- NOTE | 2022-04-27 15:43 | SC_ITS ---
WS: [id number] C-arm fluoroscopy for Port-A-Cath insertion, 04/27/2022 Clinical Data: surgery Comparison: Portable chest, 04/26/2022. Findings: Dr. Bullard inserted a Port-A-Cath via the left subclavian vein. The distal tip appears to be within the superior vena cava. SC/C-arm FL for CVA [id number] Impression: Left Port-A-Cath insertion.
--- NOTE | 2022-04-27 15:59 | XRR_ITS ---
PROCEDURE INFORMATION: Exam: XR Chest Exam date and time: 04/27/2022 4:19 PM Age: 81 years old Clinical indication: Device placement; Other: Post port placement; Prior surgery; Surgery date: Post-operative (0-2 days) TECHNIQUE: Imaging protocol: Radiologic exam of the chest. Views: 1 view. COMPARISON: CR (CHEST, ) 04/26/2022 5:00 PM FINDINGS: Tubes, catheters and devices: Left chest port terminates in the proximal SVC. Lungs: No consolidation. Pleural spaces: Similar appearance of blunting of the left costophrenic angle with prominent pericardial fat pad. No apparent pleural effusion. No pneumothorax. Heart/Mediastinum: Tortuous aorta. Borderline cardiomegaly. Bones/joints: Visualized osseous structures are intact. XR/XR chest 1V portable [id number] IMPRESSION: 1. No acute findings. 2. Proper positioning of left chest port.
[2022-04-27] MEDS: heparin, porcine 1,000 unit/mL INJ 10 mL 10000 UNIT INJECTION (16:00)
--- NOTE | 2022-04-27 16:06 | P.OP_ITS ---
Operative Report Date of procedure: April 27, 2022 Pre-op diagnosis: Pancreatic and liver masses Post-op diagnosis: same Procedure done: Mediport insertion Implants: PowerPort Surgeon: Dr. Dennis Bullard DO Anesthesia: MAC Estimated blood loss (mL): 5 Complications: None apparent Brief History: This is a very pleasant 81-year-old female with pancreatic and liver masses. Chemotherapy is desired and access is required. Risks and benefits of Mediport insertion were explained and documented. Procedure: Patient was taken to the operating room and placed supine on the operating room table. All bony prominences were padded. She was given IV sedation and monitored throughout the case by the anesthesia personnel. SCDs were placed and turned on. The arms were tucked to the side. Patient received Ancef 2 g preoperatively IV. The bilateral chest wall was prepped and draped in usual sterile fashion using chlorhexidine base prep. Sterile drapes were applied. We did procedure pause prior to beginning. An 18 gauge needle was placed in the left subclavian vein. Dark, nonpulsatile blood was aspirated. A guidewire was placed through the needle centrally toward the atrial/vena caval junction. Fluoroscopy visualized good placement. The needle was removed and the guidewire was clipped to the drape with a hemostat. Further local anesthetic was infiltrated in the soft tissues of the left chest wall and a #15 blade was used to make a horizontal skin incision. A subcutaneous Mediport pocket was created using Bovie cautery, dissecting down through the skin and subcutaneous tissues. Meticulous hemostasis was achieved. The Mediport was sutured in position using 3-0 vicryl suture x2 stitches. A #15 blade was used to make a small skin laura around the guidewire insertion area. The Mediport tubing was tunneled through the subcutaneous tissues up to the needle insertion location. A dilator with a peel-away sheath was placed over the guidewire and placed centrally. After measuring with fluoroscopy, the Mediport tubing was cut to length so that the tip would end at the atrial/vena caval junction. The inner cannula and the guidewire were removed, leaving the dilator sheath in place. The Mediport was flushed. The tip of the catheter was inserted through the peel-away sheath and the peel-away sheath removed in the standard fashion. The Mediport was accessed with a straight Robledo needle and dark, nonpulsatile blood was aspirated and flushed using heparinized saline to hep-lock the Mediport. Final fluoroscopy visualization showed no kink in the catheter and the tip of the Mediport tubing near the atrial/vena caval junction. Both skin incisions were thoroughly irrigated and suctioned dry. Meticulous hemostasis noted. The Mediport incision was closed using interrupted 3-0 Vicryl suture for the deep dermal layer and 4-0 Vicryl run to close the skin edge. The left subclavian insertion site incision was closed with a single subcuticular stitch. Skin glue was applied as a topical dressing. This was allowed to dry. Patient was awakened from anesthesia and transferred via her cart to the r ecovery room in stable condition. All needle, sponge, and instrument counts were correct per the operating personnel x2 counts.
--- NOTE | 2022-04-27 16:19 | ANES.PREANE2 ---
Pre-Anesthetic Assessment Height/Weight: Height 1.68 m Weight 74.899 kg Temp Pulse Resp BP Pulse Ox O2 Del Method O2 Flow Rate 97.2 F L 87 14 131/75 96 3 04/27/22 16:14 04/27/22 16:14 04/27/22 16:14 04/27/22 16:14 04/27/22 16:14 04/27/22 16:14 04/27/22 16:14 Preop Diagnosis: abdominal mass Operation Date: 04/27/22 14:20 Proposed Procedures p Portacath Placement(Not Applicable) - Dennis Bullard DO Familial anesthetic complications: None Was Beta Megan taken within 24 hours: N/A Was Clonidine taken within 24 hours: N/A Last intake: Intake Last Liquid Date 04/26/22 Last Liquid Time 17:00 Last Solid Date 04/26/22 Last Solid Time 17:00 Social No alcohol and No tobacco Exam alert, oriented x 3, clear to auscultation bilaterally and regular rate & rhythm Airway Submandibular: within normal limits Cervical ROM: within normal limits Mallampati: Class III History/ROS No significant history except as noted Pulmonary None reported CV/HEM Hypertension None reported Hepatic liver mass GI nausea and vomiting, abdominal mass Metabolic Thyroid Disease (hypothyroid on levothyroxine) Musc/skel None reported Neuropsych None reported Anesthetic Plan ASA status: 3 Anesthesia: Anesthesia Evaluation and MAC Risk of > 500 ml blood loss (7ml/kg in children): No Medications/Allergies Home Medications Medication Instructions Recorded Confirmed Last Taken Type fenofibrate micronized 200 mg 200 mg PO DAILY 03/15/22 04/23/22 04/22/22 History capsule levothyroxine 25 mcg capsule 25 mcg PO DAILY 03/15/22 04/23/22 04/22/22 History montelukast 10 mg tablet 10 mg PO DAILY 03/15/22 04/23/22 04/22/22 History valsartan 160 1 tab PO DAILY 03/15/22 04/23/22 04/22/22 History mg-hydrochlorothiazide 12.5 mg tablet hydrocodone 5 mg-acetaminophen 325 1 - 2 tab PO Q4H PRN pain 2 weeks 04/14/22 04/23/22 Unknown Rx mg tablet #120 tabs aspirin 325 mg tablet 325 mg PO DAILY 04/23/22 04/23/22 04/22/22 History Allergies Allergy/AdvReac Type Severity Reaction Status Date / Time Sulfa (Sulfonamide Allergy Unknown Verified 12/21/21 13:44 Antibiotics) Current Medications Generic Name Dose Route Start Last Admin Trade Name Freq PRN Reason Stop Dose Admin Enoxaparin Sodium 40 mg 04/23/22 19:00 04/23/22 19:59 Enoxaparin 40 Mg/0.4 Ml Syringe SUBCUT 40 mg Q24H DENIZ Administration Fentanyl 50 mcg 04/27/22 14:13 04/27/22 14:42 Fentanyl 50 Mcg/Ml Inj 2ml IVP 25 mcg Q10M PRN Administration Preop Pain Hydrochlorothiazide 12.5 mg 04/27/22 09:00 04/27/22 09:45 Hydrochlorothiazide 25 Mg Tablet PO 12.5 mg DAILY DENIZ Administration Piperacillin Sod/Tazobactam 50 mls @ 12.5 mls/hr 04/23/22 17:30 04/27/22 14:31 Sod 3.375 gm/ Sodium Chloride IV 25 mls/hr Q8H DENIZ Infusion Dextrose/Sodium Chloride 1,000 mls @ 75 mls/hr 04/25/22 19:15 04/27/22 09:44 Dextrose 5%-Sod Chloride 0.9% IV 0 mls/hr .[id number] DENIZ Infusion Sodium Chloride 1,000 mls @ 30 mls/hr 04/27/22 14:15 04/27/22 14:44 Sodium Chloride 0.9% IV 04/28/22 14:14 30 mls/hr .Q24H DENIZ Administration Levothyroxine Sodium 25 mcg 04/24/22 09:00 04/27/22 08:02 Levothyroxine 25 Mcg Tablet PO 25 mcg DAILY DENIZ Administration Losartan Potassium 50 mg 04/27/22 09:00 04/27/22 09:45 Losartan 50 Mg Tablet PO 50 mg DAILY DENIZ Administration Ondansetron HCl 4 mg 04/23/22 16:27 04/27/22 08:02 Ondansetron 2 Mg/Ml Sdv 2 Ml IVP 4 mg Q4H PRN Administration NAUSEA AND VOMITING Oxycodone HCl 10 mg 04/26/22 13:00 04/27/22 12:40 Oxycodone 10 Mg Er (12 Hr) Tablet PO 10 mg Q12H DENIZ Administration Oxycodone/Acetaminophen 1 tab 04/26/22 12:55 04/27/22 08:02 Oxycodone-Apap 5-325 Mg Tablet PO 1 tab Q4H PRN Administration MODERATE PAIN Pantoprazole Sodium 40 mg 04/23/22 18:27 04/27/22 12:40 Pantoprazole 40 Mg Sdv IVP 40 mg Q12H DENIZ Administration Senna/Docusate Sodium 1 tab 04/26/22 13:00 04/27/22 08:02 Sennosides-Docusate Tablet PO Not Given BID DENIZ PFSH Anesthesia Medical History (Updated 04/26/22 @ 14:12 by Dennis Bullard DO) Hypertension Pancreatic mass Social History Smoking and tobacco status: never smoked Alcohol intake: never Data Anesthesia : 04/24/22 05:00 04/27/22 05:52 BMP 04/25/22 04/26/22 04/27/22 15:46 04:39 05:52 Sodium 143 143 140 Potassium 4.2 3.3 L 3.2 L Chloride 105 106 101 Carbon Dioxide 27 26 28 BUN 10 8 4 L Creatinine 0.5 0.5 0.4 L Glucose 113 115 152 H Calcium 9.0 8.6 8.8 Cardiac Studies: No Data to Display
--- NOTE | 2022-04-27 16:23 | ANE.PACU2 ---
Inpatient post-anesthesia follow up: Airway intact: Yes Vital signs: Temperature 97.2 F Pulse Rate 87 Respiratory Rate 14 Blood Pressure 131/75 Pulse Oximetry 96 Oxygen Delivery Me thod [ Nasal Cannula Current Rate & Del narendra] Oxygen Delivery Me thod Nasal Cannula Oxygen Flow Rate [ Current Rate 2 & Delivery] Oxygen Flow Rate 3 Fraction of Inspir ed Oxygen Hydration adequate: Yes Nausea and vomiting: No Pain level: 1 Mental status: Baseline
--- NOTE | 2022-04-27 16:41 | P.PN_ITS ---
Subjective Subjective: seen this am. npo for mediport placement today family at bedside pain better controlled with new pain med regimen tolerating diet Vitals/I&O/Wt Last Vital Signs Temp 97.2 F L 04/27/22 16:14 Pulse 87 04/27/22 16:31 Resp 14 04/27/22 16:31 BP 160/73 04/27/22 16:31 Pulse Ox 97 04/27/22 16:31 O2 Del Method 04/27/22 16:31 O2 Flow Rate 3 04/27/22 16:31 04/27/22 04/27/22 04/27/22 06:59 14:59 22:59 Intake Total 1050 / 3999.870 943.0986 / 810.1329 210 / 1020.1329 Output Total 5 / Balance 1050 / 3999.500 416.2846 / 810.1329 205 / 1015.1329 Physical Exam Const: COMMON NORMALS: no acute distress and patient oriented x3 HENMT: COMMON NORMALS: normocephalic HEAD & SCALP: normocephalic Eye: COMMON NORMALS: Equal, round and reactive pupils present PUPIL: Yes Equal, round and reactive pupils present Neck/C-Spine: COMMON NORMALS: no JVD Resp: COMMON NORMALS: normal respiratory effort, No retractions, No use of accessory muscles and clear to auscultation bilaterally AUSCULTATION: clear to auscultation bilaterally Cardio: COMMON NORMALS: no JVD, regular rate, regular rhythm, S1 normal heart sound present and S2 normal heart sound present RATE: regular rate RHYTHM: regular rhythm HEART SOUNDS: S1 normal heart sound present and S2 normal heart sound present GI: COMMON NORMALS: Soft to palpation PALPATION: Yes Soft to palpation OTHER: Abdomen soft, diffusely tender, exquisite right upper quadrant tenderness, decreased bowel sounds, no guarding, no rebound, no rigidity Extremity: COMMON NORMALS: no clubbing, cyanosis or edema, no calf tenderness and no pedal edema Neuro: COMMON NORMALS: patient oriented x3, CN's II-XII intact bilaterally and moves all extremities Psych: COMMON NORMALS: mental status grossly normal Data : 04/24/22 05:00 04/27/22 05:52 A&P Assessment and plan (1) Abdominal pain: (2) Nausea & vomiting: (3) Abdominal pain: (4) Gastritis: (5) Intractable abdominal pain: (6) Intractable nausea and vomiting: (7) Abdominal mass, right upper quadrant: Plan Pancreatic 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 Large mass at pancreatic head invading into rosemary hepatis. Lesion seen on adrenal gland as well. Mets in liver. CEA 300, CA 19?9 7500. ?Discussed with radiology and oncology. Patient status post liver biopsy today. Pathology pending. -Blood cultures negative to date. Urine growing gram-negative rods. -Lovenox for DVT prophylaxis -Full code Zosyn as above for UTI - mediport to be placed. dr. strange consulted. -N.p.o. for Mediport placement in a.m. ? Patient had liver biopsy 04/26 Start on GI soft diet. Optimize pain control OxyContin 10 twice daily, oxycodone every 4-6 hours as needed for breakthrough. Stop Dilaudid. Stop morphine. She will follow-up with Dr. Vences on Sunday at 8 AM for her oncology appointment. DC fluids Plan for breast biopsy tomorrow as pathologist raised concerns regarding existing sample. We will require additional breast tissue for further diagnosis as prelim report showing possible breast as primary. Additionaly, patients daughter has raised concerns regarding patient living alone and that its not safe for her to go home. Will check PT/OT and discuss with patient. She has capacity to make her medical decisions. replete potassium today recheck bmp in afternoon Full code DVT prophylaxis SCDs. Hold Lovenox for biopsy tomorrow. Attestations Medical Necessity Statement*: Breast biopsy in AM. Potential DC thereafter. 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
[2022-04-27] MEDS: sennosides-docusate Tablet 1 TAB PO (17:16)
[2022-04-27] MEDS: enoxaparin 40 mg/0.4 mL Syringe SUBCUT (18:20)
[2022-04-28] VITALS (16 sets, daily range): BP systolic 130–185; BP diastolic 73–91; PULSE 85–116; RESP 14–18; TEMP 36.3–37.1; O2SAT 90–96
[2022-04-28] MEDS: oxyCODONE 10 mg ER (12 HR) Tablet PO ×2 (01:00→13:13)
[2022-04-28] MEDS: piperacillin-tazobactam 3.375 GM in sodium chloride 0.9% (plus) 50 ML IV ×3 (01:01→18:19)
[2022-04-28] MEDS: pantoprazole 40 mg SDV IVP ×2 (01:01→13:14)
[2022-04-28] MEDS: oxyCODONE-APAP 5-325 mg Tablet 1 TAB PO ×4 (01:58→20:24)
--- NOTE | 2022-04-28 07:23 | PC.NURSE ---
Bedside report given to Edith HUNG at this time.
[2022-04-28] MEDS: sennosides-docusate Tablet 1 TAB PO ×2 (08:31→18:20)
[2022-04-28] MEDS: amlodipine 10 mg Tablet PO (08:31)
[2022-04-28] MEDS: hydroCHLOROthiazide 25 mg Tablet 12.5 MG PO (08:33)
[2022-04-28] MEDS: levothyroxine 25 mcg Tablet PO (08:33)
[2022-04-28] MEDS: losartan 50 mg Tablet PO (08:33)
--- NOTE | 2022-04-28 09:47 | P.PN_ITS ---
Subjective Subjective: Patient seen and examined postoperative day #1 status post Mediport insertion. She has minimal pain at the site and no new complaints. Vitals/I&O/Wt Last Vital Signs Temp 98.7 F 04/28/22 08:00 Pulse 87 04/28/22 08:00 Resp 18 04/28/22 08:32 BP 137/81 04/28/22 08:33 Pulse Ox 94 04/28/22 08:32 O2 Del Method 04/28/22 08:00 O2 Flow Rate 3 04/27/22 16:31 04/27/22 04/28/22 04/28/22 22:59 06:59 14:59 Intake Total 1020.208 / 1830.3409 200 / 2029.3409 Output Total / Balance 1015.208 / 1825.3409 200 / 2024.3409 Physical Exam Narrative: General: No acute distress, awake alert and oriented x3 Skin: Incisions intact without erythema or exudate Data : 04/24/22 05:00 04/27/22 05:52 A&P Assessment and plan (1) Port-A-Cath in place: Plan Port may be used immediately No further surgical intervention at this time Follow-up with me in office in 2 weeks Attestations Medical Necessity Statement*: Further hospitalization per hospitalist Coding Level of Care Code Acute Forensic Dna Analyst for Silvia Venegas Diagnoses Port-A-Cath in place Z95.828
--- NOTE | 2022-04-28 10:42 | PC.SOCIAL ---
IMM Update pg 2 of IMM Update and reviewed w/ patient. Copy provided and copy in chart dated and intialed.
--- NOTE | 2022-04-28 12:35 | PC.PT ---
PT evaluation attempted at this time, but patient declined out of bed stating complaints of weakness, and having another procedure later, stated may be then. Of note patient declined earlier attempted occupational therapy evaluation as well. Will reattempt evaluation later today.
--- NOTE | 2022-04-28 13:00 | US_ITS ---
WS: [id number] ULTRASOUND-GUIDED RIGHT BREAST BIOPSY CLINICAL INFORMATION: right breast mass FINDINGS: The procedure including risks, benefits, and complications were discussed with the patient who agreed to proceed. Using sterile technique patient was prepped and draped in the usual sterile fashion. Aft er 1% lidocaine utilizing real-time ultrasound guidance 5 14-gauge cores were obtained of the RIGHT b reast lesion at the 10 o'clock position 7 cm. Subsequently a titanium clip was placed in the biopsy c avity. No immediate complications. Pathology demonstrates A. 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 - Martin Junior grade 3 (score 7). - Breast profile has been performed and will be reported separately. US/[place] [id number] IMPRESSION: 1. Uncomplicated ultrasound-guided RIGHT breast biopsy. 2. The pathology demonstrates Moderate to poorly differentiated invasive ducta l carcinoma. 3. Recommend breast surgical consultation in further evaluation. BI-RADS: 6-Known Biopsy-Proven Malignancy FOLLOW UP: Surgical Biopsy Recommended Recommend follow-up with bilateral diagnostic mammography to complete workup wh en patient is discharged from hospital and condition permits. No recent mammogr ams.
[2022-04-28] MEDS: dextrose 5%-sod chloride 0.9% 1,000 ML 75 ML IV (13:15)
--- NOTE | 2022-04-28 13:28 | ECG_ITS ---
[facility] Test Date: 2022-04-28 Pat Name: Alexus Crowley Department: Room: 262 Gender: Female Wheel Buffer: : 1940 Requested By: Aguilar Avila Order Number: [id number] Santos MD: Nigel De Santiago M.D. Measurements Intervals Chauncey Rate: 108 P: IA: QRS: 7 QRSD: 94 T: 1 QT: 338 QTc: 454 Interpretive Statements ATRIAL FIBRILLATION WITH RAPID VENTRICULAR RESPONSE NONSPECIFIC ST & T-WAVE ABNORMALITY ABNORMAL RHYTHM ECG No previous ECG available for comparison Electronically Signed On 04-28-2022 16:37:39 CDT by Nigel De Santiago M.D. [id number]
--- NOTE | 2022-04-28 14:44 | SUR.OPER ---
1400 pt getting breast biopsy done in pts room...
--- NOTE | 2022-04-28 14:45 | PC.NURSE ---
pt tolerated breast biopsy procedure well .....drsg to rt breast remains clean and dry since procedure done
--- NOTE | 2022-04-28 14:58 | PM.CONSULT ---
Providers/Reason For Consult Consulting Physician/Specialty*: Medical oncology. Reason for Consult*: Adenocarcinoma of pancreatic or hepatobiliary origin. Requesting Physician: Sharon Camejo MD Attending Physician: Sharon Camejo MD Primary Care Provider: Remberto Black DO History of Present Illness History of Present Illness This is an 81-year-old woman with an advanced malignancy of pancreatic or hepatobiliary origin. She began having abdominal pain and back pain similar in the range of 2 months ago. On 03/28/2022 she was seen in the emergency room with increasing abdominal pain, and her CT abdomen/pelvis at that time showed a 6 cm mass in the head of the pancreas extending to the gallbladder, rosemary hepatis, and celiac axis. It appeared to involve the left renal vein near its confluence with the superior vena cava. The reported differential included pancreatic neoplasm, gallbladder neoplasm, or pseudocyst, though neoplasm was favored. The gallbladder was noted to be distended with a markedly thickened wall without gallstones. A 3.2 cm mass in the left adrenal gland was suspicious for metastatic disease. There was noted to be a penetrating ulcer of the immediate infrarenal segment of the abdominal aorta. She was discharged home to continue further evaluation as an outpatient. On 04/23/2022 after presenting to the emergency room with abdominal pain and recurrent nausea/vomiting. Her repeat CT abdomen/pelvis showed a right upper quadrant neoplastic process which was thought to most likely be arising from the gallbladder/bile duct with associated distended/obstructed gallbladder lumen. The soft tissue component was noted to extend into the gallbladder neck region and probably into the periportal/caudate hepatic parenchyma with obstruction of the intrahepatic bile ducts at the hepatic hilar level. Another large intrahepatic lesion was noted in the left lobe possibly representing additional area of tumor extension or metastatic disease. Primary malignancy arising from the pancreatic head was felt to be much less likely. MR MRCP reported a large expansile mass of the left hepatic lobe and a large mass centered in the pancreatic head with invasion of the rosemary hepatis region. On 04/26/2022 she underwent ultrasound directed biopsy of the liver mass. Pathology shows adenocarcinoma, with additional pathologic studies still pending. She then underwent placement of Port-A-Cath venous access device, she had indicated that she was interested in pursuing chemotherapy treatment. She is also scheduled to undergo ultrasound directed biopsy of a right breast nodule. She has been very weak generally, and her activity has been very limited. ECOG score is 3. She has very poor appetite and very limited oral intake, as she continues to have significant nausea and abdominal pain. She has not had fever. She recently has started having a little sweating. She has had some difficulty swallowing, especially larger pills. She has had some shortness of breath. Her pain has been in the mid to upper abdomen, and it frequently starts on the left side and extends across her abdomen. She has been having constipation. Bladder function has been pretty good. During this time she has been having significant pain in her back, and she also has pain in the right leg. She has had some numbness intermittently in her fingertips. Review of Systems Narrative: Constitutional: She has become very weak, and her activity is very limited. She has poor appetite and poor oral intake. She has lost weight. No fever. Recently she has started having a little sweating. ECOG score is 3. Eyes:?No change in vision. ENMT: No hearing loss or tinnitus. No sinus congestion/drainage. No mouth sores. No sore throat. She has had a little difficulty swallowing. Hematologic/Lymphatic: No abnormal bruising or bleeding. Respiratory: She has some shortness of breath, but not much cough. No pleuritic pain or hemoptysis. Cardiovascular: No angina pain. No palpitations. Gastrointestinal: She has been having nausea/vomiting, and she has pain in the mid and upper abdomen. She has constipation. No blood in the stool or black stools. Genitourinary: No dysuria or hematuria. No urinary frequency. No urgency or incontinence. Musculoskeletal: She has been having a lot of back pain, and she also has pain in her right leg. Integumentary: No skin rash or other skin changes. Neurologic: No headache. She has dizziness. She has a little numbness in her fingertips. No other focal neurologic symptoms. Psych:?She has some anxiety. No depression. She has difficulty sleeping. Medications/Allergies Home Medications Medication Instructions Recorded Confirmed Last Taken Type fenofibrate micronized 200 mg 200 mg PO DAILY 03/15/22 04/23/22 04/22/22 History capsule levothyroxine 25 mcg capsule 25 mcg PO DAILY 03/15/22 04/23/22 04/22/22 History montelukast 10 mg tablet 10 mg PO DAILY 0804/23/22 04/22/22 History valsartan 160 1 tab PO DAILY 03/15/22 04/23/22 04/22/22 History mg-hydrochlorothiazide 12.5 mg tablet hydrocodone 5 mg-acetaminophen 325 1 - 2 tab PO Q4H PRN pain 2 weeks 04/14/22 04/23/22 Unknown Rx mg tablet #120 tabs aspirin 325 mg tablet 325 mg PO DAILY 04/23/22 04/23/22 04/22/22 History Allergies Allergy/AdvReac Type Severity Reaction Status Date / Time Sulfa (Sulfonamide Allergy Unknown Verified 12/21/21 13:44 Antibiotics) Current Medications Generic Name Dose Route Start Last Admin Trade Name Freq PRN Reason Stop Dose Admin Amlodipine Besylate 10 mg 04/27/22 13:15 04/28/22 08:31 Amlodipine 10 Mg Tablet PO 10 mg DAILY DENIZ Administration Enoxaparin Sodium 40 mg 04/23/22 19:00 04/27/22 18:20 Enoxaparin 40 Mg/0.4 Ml Syringe SUBCUT 40 mg Q24H DENIZ Administration Fentanyl 50 mcg 04/27/22 14:13 04/27/22 16:19 Fentanyl 50 Mcg/Ml Inj 2ml IVP 50 mcg Q10M PRN Administration Preop Pain Hydrochlorothiazide 12.5 mg 04/27/22 09:00 04/28/22 08:33 Hydrochlorothiazide 25 Mg Tablet PO 12.5 mg DAILY DENIZ Administration Piperacillin Sod/Tazobactam 50 mls @ 12.5 mls/hr 04/23/22 17:30 04/28/22 08:31 Sod 3.375 gm/ Sodium Chloride IV 12.5 mls/hr Q8H DENIZ Administration Dextrose/Sodium Chloride 1,000 mls @ 75 mls/hr 04/25/22 19:15 04/28/22 13:15 Dextrose 5%-Sod Chloride 0.9% IV 75 mls/hr .[id number] DENIZ Administration Levothyroxine Sodium 25 mcg 04/24/22 09:00 04/28/22 08:33 Levothyroxine 25 Mcg Tablet PO 25 mcg DAILY DENIZ Administration Losartan Potassium 50 mg 04/27/22 09:00 04/28/22 08:33 Losartan 50 Mg Tablet PO 50 mg DAILY DENIZ Administration Ondansetron HCl 4 mg 04/23/22 16:27 04/27/22 17:16 Ondansetron 2 Mg/Ml Sdv 2 Ml IVP 4 mg Q4H PRN Administration NAUSEA AND VOMITING Oxycodone HCl 10 mg 04/26/22 13:00 04/28/22 13:13 Oxycodone 10 Mg Er (12 Hr) Tablet PO 10 mg Q12H DENIZ Administration Oxycodone/Acetaminophen 1 tab 04/26/22 12:55 04/28/22 08:32 Oxycodone-Apap 5-325 Mg Tablet PO 1 tab Q4H PRN Administration MODERATE PAIN Pantoprazole Sodium 40 mg 04/23/22 18:27 04/28/22 13:14 Pantoprazole 40 Mg Sdv IVP 40 mg Q12H DENIZ Administration Senna/Docusate Sodium 1 tab 04/26/22 13:00 04/28/22 08:31 Sennosides-Docusate Tablet PO 1 tab BID DENIZ Administration PFSH Acute PFSH: Medical History (Updated 04/28/22 @ 16:12 by Aguilar Vences MD) Hypertension Pancreatic mass Social History Smoking and tobacco status: never smoked Alcohol intake: never Vitals/I&O/Wt Last Vital Signs Temp 98.7 F 04/28/22 08:00 Pulse 85 04/28/22 09:56 Resp 18 04/28/22 13:13 BP 137/81 04/28/22 08:33 Pulse Ox 94 04/28/22 13:13 O2 Del Method 04/28/22 09:56 O2 Flow Rate 3 04/27/22 16:31 04/27/22 04/28/22 04/28/22 22:59 06:59 14:59 Intake Total 1020.208 / 1830.3409 200 / 2030.3409 1000 / 1000 Output Total 5 / 5 Balance 1015.208 / 1825.3409 200 / 2025.3409 1000 / 1000 Physical Exam Narrative: Constitutional: She appears generally weak. Eyes: Sclerae nonicteric. Conjunctivae clear. ENMT: No lesions noted in the oral cavity. Neck: Neck shows no mass or thyromegaly. Hematologic/Lymphatic: No cervical or clavicular adenopathy. Respiratory: Lungs sound clear with good air movement bilaterally. Cardiovascular: Heart rhythm is irregular. The rate is a little high. There is no murmur, gallop, or rub noted. Breasts: There is a firm, discrete nodule in the upper outer quadrant right breast measuring approximately 2 cm. Abdomen: Mildly distended and tympanic. There is tenderness in the upper abdomen. Liver does not appear overtly enlarged. Spleen is not palpable. There is no abdominal mass or ascites noted and there is no inguinal adenopathy. Extremities: No edema. Integumentary: No rashes. No suspicious skin lesions noted. Neurologic: No focal neurologic deficits noted. Data : 04/24/22 05:00 04/27/22 05:52 Other Labs: Her tumor markers were significantly elevated with CEA 301.5 ng/mL and CA 19-9 7547 U/mL. A&P Assessment and plan (1) Adenocarcinoma of head of pancreas: This patient has biopsy-proven adenocarcinoma involving the liver, most likely due to primary malignancy in the head of the pancreas, though there is also possibility of a primary cholangiocarcinoma. In either case, her disease appears to be both locally advanced and metastatic. The breast lesion may be an additional site of metastatic involvement or it could be a second primary malignancy, but it is almost certainly not the source of her metastatic disease. The findings were reviewed with the patient and her family, and we discussed the clinical implications. She has an advanced malignancy of either pancreatic or hepatobiliary origin. In either case, her disease is inoperable and incurable. While there may be some variation in the chemotherapy regimen recommended for pancreatic versus biliary tract malignancy, in either case the response rates with chemotherapy are relatively low, at best in the range of 25%. In the setting of poor performance status, the likelihood of significant benefit is low, and there will be significant risk for treatment related toxicity. I reviewed common side effects would be associated with chemotherapy, including potential for nausea/vomiting, alopecia, weakness/fatigue, and low blood counts with risk of infection, among others. If she does show some improvement with her symptomatic management, it may be feasible to start chemotherapy as an outpatient sometime next week. In the meantime, I would recommend a trial of fentanyl at 25 mcg/h along with immediate release oxycodone as needed for her pain. Overall, the prognosis in this situation appears to be very poor, and if she decides that she does not want to attempt chemotherapy, she would be very appropriate for hospice care. Consult Attestations Medical Necessity Statement: Not applicable. Coding Level of Care Code Acute Hydramatic Specialist for Chg Fwd Diagnoses Adenocarcinoma of head of pancreas C25.0
--- NOTE | 2022-04-28 15:08 | PM.PN ---
Subjective Subjective: Seen this morning. Patient woke up from breast biopsy today. She states she does not feel comfortable going home as she does not feel safe to go home due to not having help there. She also states that after liver biopsy she was in significant pain and would like to see how she does after breast biopsy. Ideally she would like to consider going home tomorrow but not today due to biopsy happening this afternoon. Dr. Vences to see patient in afternoon today. Vitals/I&O/Wt Last Vital Signs Temp 98.7 F 04/28/22 08:00 Pulse 85 04/28/22 09:56 Resp 18 04/28/22 13:13 BP 137/81 04/28/22 08:33 Pulse Ox 94 04/28/22 13:13 O2 Del Method 04/28/22 09:56 O2 Flow Rate 3 04/27/22 16:31 04/28/22 04/28/22 04/28/22 06:59 14:59 22:59 Intake Total 200 / 2029.3409 1000 / 1000 Balance 200 / 2024.3409 1000 / 1000 Physical Exam Const: COMMON NORMALS: no acute distress and patient oriented x3 HENMT: COMMON NORMALS: normocephalic HEAD & SCALP: normocephalic Eye: COMMON NORMALS: Equal, round and reactive pupils present PUPIL: Yes Equal, round and reactive pupils present Neck/C-Spine: COMMON NORMALS: no JVD Resp: COMMON NORMALS: normal respiratory effort, No retractions, No use of accessory muscles and clear to auscultation bilaterally AUSCULTATION: clear to auscultation bilaterally Cardio: COMMON NORMALS: no JVD, regular rate, regular rhythm, S1 normal heart sound present and S2 normal heart sound present RATE: regular rate RHYTHM: regular rhythm HEART SOUNDS: S1 normal heart sound present and S2 normal heart sound present GI: COMMON NORMALS: Soft to palpation PALPATION: Yes Soft to palpation OTHER: Abdomen soft, diffusely tender, exquisite right upper quadrant tenderness, decreased bowel sounds, no guarding, no rebound, no rigidity Extremity: COMMON NORMALS: no clubbing, cyanosis or edema, no calf tenderness and no pedal edema Neuro: COMMON NORMALS: patient oriented x3, CN's II-XII intact bilaterally and moves all extremities Psych: COMMON NORMALS: mental status grossly normal Data : 04/24/22 05:00 04/27/22 05:52 A&P Assessment and plan (1) Abdominal pain: (2) Nausea & vomiting: (3) Abdominal pain: (4) Gastritis: (5) Intractable abdominal pain: (6) Intractable nausea and vomiting: (7) Abdominal mass, right upper quadrant: Plan Pancreatic 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 Large mass at pancreatic head invading into rosemary hepatis. Lesion seen on adrenal gland as well. Mets in liver. CEA 300, CA 19?9 7500. ?Discussed with radiology and oncology. Patient status post liver biopsy today. Pathology pending. -Blood cultures negative to date. Urine growing gram-negative rods. -Lovenox for DVT prophylaxis -Full code Zosyn as above for UTI -Mediport placed. ? Patient had liver biopsy 04/26 Start on GI soft diet. Optimize pain control oxycodone every 4-6 hours as needed for breakthrough. Stop Dilaudid. Stop morphine. Stop OxyContin. We will start her on fentanyl patch [address] Vences to see her today in the hospital. DC fluids Plan for breast biopsy today. Will check PT/OT and discuss with patient. She has capacity to make her medical decisions. replete potassium today recheck bmp in afternoon Full code DVT prophylaxis SCDs. Hold Lovenox for biopsy tomorrow. Attestations Medical Necessity Statement*: Breast biopsy today. Dr. Vences's consult pending. Plan for DC in a.m. Optimize pain control today. Coding Level of Care Code Acute Mechanical Integrity Specialist for Chg Fwd Diagnoses Abdominal pain R10.9 Nausea & vomiting R11.2 Abdominal pain R10.9 Gastritis K29.70 Intractable abdominal pain R10.9 Intractable nausea and vomiting R11.2 Abdominal mass, right upper quadrant R19.01
[2022-04-28] MEDS: enoxaparin 40 mg/0.4 mL Syringe SUBCUT (18:20)
[2022-04-29] VITALS (12 sets, daily range): BP systolic 121–168; BP diastolic 72–83; PULSE 87–113; RESP 15–18; TEMP 36.5–36.8; O2SAT 91–97
[2022-04-29] MEDS: pantoprazole 40 mg SDV IVP ×2 (01:01→18:02)
[2022-04-29] MEDS: oxyCODONE-APAP 5-325 mg Tablet 1 TAB PO ×3 (01:03→19:04)
[2022-04-29] MEDS: piperacillin-tazobactam 3.375 GM in sodium chloride 0.9% (plus) 50 ML IV ×3 (01:05→18:02)
[2022-04-29] MEDS: dextrose 5%-sod chloride 0.9% 1,000 ML 75 ML IV (01:11)
[2022-04-29 05:36] LABS: Basophils % 0.7 %; Eosinophils # 0.1 10^3/uL (0.0-0.8); Eosinophils % 2.5 %; Hematocrit 36.3 % (37.0-47.0); Hemoglobin 11.3 g/dL (11.5-15.3); Lymphocytes # 0.8 10^3/uL (0.8-4.8); Lymphocytes % 14.2 %; Mean Corpuscular HGB Conc 31.1 g/dL (30.0-36.0); Mean Corpuscular Hemoglobin 29.1 pg (28.0-34.0); Mean Corpuscular Volume 93.6 fl (81-99); Mean Platelet Volume 10.8 fL (7.4-10.4); Monocytes # 0.6 10^3/uL (0.2-0.9); Monocytes % 9.9 %; Neutrophils % 72.2 %; Nucleated Red Blood Cells % 0 %; Platelet Count 230 10^3/cmm (130-400); Red Blood Count 3.88 10^6/uL (4.1-5.3); Red Cell Distribution Width 14.6 % (12.1-15.1); White Blood Count 5.6 10^3/uL (4.0-10.0)
[2022-04-29 06:05] LABS: Anion Gap 9.7 (5-19); Blood Urea Nitrogen 7 mg/dL (8-23); Calcium 8.7 mg/dL (8.5-10.5); Carbon Dioxide 29 mmol/L (22-29); Chloride 96 mmol/L (98-107); Glucose 130 mg/dL (65-115); Magnesium 1.4 mg/dL (1.7-2.3); Osmolality Calculated 274 mOsm/kg (285-295); Sodium 132 mmol/L (136-145)
[2022-04-29 06:18] LABS: Potassium 2.7 mmol/L (3.5-5.1)
--- NOTE | 2022-04-29 08:40 | PC.NURSE ---
Dr. Camejo spoke to this nurse face to face verbally and stated to discontinue Dr. Panchal's order of 40 ml Potassium with Lidocaine. She ordered Potassium IV and oral.
[2022-04-29] MEDS: potassium chloride ER 20 mEq Tablet 40 MEQ PO (08:48)
[2022-04-29] MEDS: magnesium sulfate premix 4 GM/100 ML PREMIX IV (08:55)
--- NOTE | 2022-04-29 09:30 | PC.NURSE ---
Dr. Camejo came into patients room. Port was unable to access by this nurse, charge nurse and Dr. Camejo. Orders to finish running magnesium, then run potassium and lastly run the zosyn. Dr. Camejo will speak with Dr. Bullard about Port. Verbal order to do Fentanyl Patch 25 contreras per 72 hours
[2022-04-29] MEDS: hydroCHLOROthiazide 25 mg Tablet 12.5 MG PO (09:35)
[2022-04-29] MEDS: amlodipine 10 mg Tablet PO (09:35)
[2022-04-29] MEDS: levothyroxine 25 mcg Tablet PO (09:36)
[2022-04-29] MEDS: sennosides-docusate Tablet 1 TAB PO ×2 (09:36→18:02)
[2022-04-29] MEDS: losartan 50 mg Tablet PO (09:37)
--- NOTE | 2022-04-29 10:30 | PC.SOCIAL ---
Late entry. Patient seen on 04/28/22. Patient family requests information about pallative care versus hospice care. Natividad Hoover, VIVIAN and Utility Bag Assembler Miguel Mckeon was unable to speak with patient as she was sleeping. Pt daughter Janice reports patient wants to pursue treatment. Reports pt lives alone in a 4 story home with stairs. Janice concerned as patient can only walk about 5 feet. There is a 100 pd dog in the home that causes pt to fall. Per Janice, pt son Rigo is easily frustrated and wants to take over the plan of care for patient. The DPOA is in place for all 3 children to make decision and for the majority to rule. Pt is still able to make her own choices at this time. 81 y/o female with pancreatic cancer, possible breast cancer. Breast biopsy to be completed today and Dr. Vences will see pt on the floor. Family is afraid patient will fall. Rigo contacted [facility] for self referral and intake reports accepted. There appears to be discord between the 2 children present, another son lives in [place]. Patient will need assistance in developing a safety plan once she returns home. Patient may also need assistance in holding a family conversation about her healthcare choices. Second attempt to speak with patient, however, breast biopsy was being performed.
[2022-04-29] MEDS: potassium chloride premix 100 ML 25 MEQ IV (11:07)
[2022-04-29] MEDS: fentaNYL 25 mcg Patch 1 PATCH TRANSDERMA (12:24)
--- NOTE | 2022-04-29 12:41 | PM.PN ---
Subjective Subjective: seen this am with family at bedside pt seen by Dr. Vences yesterday Patient now thinking about hospice but unsure Pain uncontrolled today will start fentanyl patch Family updated at bedside Vitals/I&O/Wt Last Vital Signs Temp 97.7 F 04/29/22 12:00 Pulse 102 H 04/29/22 12:00 Resp 18 04/29/22 12:00 BP 121/74 04/29/22 12:00 Pulse Ox 92 04/29/22 12:00 O2 Del Method 04/29/22 12:00 O2 Flow Rate 3 04/27/22 16:31 04/28/22 04/29/22 04/29/22 22:59 06:59 14:59 Intake Total 340 / 1340 2185 / 3525 Balance 340 / 1340 2185 / 3525 Physical Exam Const: COMMON NORMALS: no acute distress and patient oriented x3 HENMT: COMMON NORMALS: normocephalic HEAD & SCALP: normocephalic Eye: COMMON NORMALS: Equal, round and reactive pupils present PUPIL: Yes Equal, round and reactive pupils present Neck/C-Spine: COMMON NORMALS: no JVD Resp: COMMON NORMALS: normal respiratory effort, No retractions, No use of accessory muscles and clear to auscultation bilaterally AUSCULTATION: clear to auscultation bilaterally Cardio: COMMON NORMALS: no JVD, regular rate, regular rhythm, S1 normal heart sound present and S2 normal heart sound present RATE: regular rate RHYTHM: regular rhythm HEART SOUNDS: S1 normal heart sound present and S2 normal heart sound present GI: COMMON NORMALS: Soft to palpation PALPATION: Yes Soft to palpation OTHER: Abdomen soft, diffusely tender, exquisite right upper quadrant tenderness, decreased bowel sounds, no guarding, no rebound, no rigidity Extremity: COMMON NORMALS: no clubbing, cyanosis or edema, no calf tenderness and no pedal edema Neuro: COMMON NORMALS: patient oriented x3, CN's II-XII intact bilaterally and moves all extremities Psych: COMMON NORMALS: mental status grossly normal Data : 04/29/22 05:15 04/29/22 05:15 Micro: Microbiology 04/23/22 18:04 Blood Culture - Final Blood NO GROWTH AFTER 5 DAYS 04/23/22 18:09 Blood Culture - Final Blood NO GROWTH AFTER 5 DAYS A&P Assessment and plan (1) Abdominal pain: (2) Nausea & vomiting: (3) Abdominal pain: (4) Gastritis: (5) Intractable abdominal pain: (6) Intractable nausea and vomiting: (7) Abdominal mass, right upper quadrant: Plan Pancreatic 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 Large mass at pancreatic head invading into rosemary hepatis. Lesion seen on adrenal gland as well. Mets in liver. CEA 300, CA 19?9 7500. ?Discussed with radiology and oncology. Patient status post liver biopsy today. Pathology pending. -Blood cultures negative to date. Urine growing gram-negative rods. -Lovenox for DVT prophylaxis -Full code Zosyn as above for UTI -Mediport placed. ? Patient had liver biopsy 04/26 Start on GI soft diet. Optimize pain control oxycodone every 4-6 hours as needed for breakthrough. Stop Dilaudid. Stop morphine. Stop OxyContin. We will start her on fentanyl patch [address] Vences saw patient. Consult note complete. Pt has 25% survival chance. Patient now thinking about hospice. She will let us know her decision DC fluids Breast biopsy complete. Will check PT/OT and discuss with patient. She has capacity to make her medical decisions. replete potassium today recheck bmp in afternoon Full code DVT prophylaxis SCDs. lovenox 40 daily Attestations Medical Necessity Statement*: Optimize pain control today. Pt might opt for hospice. Possible DC in AM. Coding Level of Care Code Acute Disbursing Agent for Chg Fwd Diagnoses Abdominal pain R10.9 Nausea & vomiting R11.2 Abdominal pain R10.9 Gastritis K29.70 Intractable abdominal pain R10.9 Intractable nausea and vomiting R11.2 Abdominal mass, right upper quadrant R19.01
[2022-04-29] MEDS: lactulose oral liq 20 gm/30 mL UDC PO (19:04)
[2022-04-29] MEDS: enoxaparin 40 mg/0.4 mL Syringe SUBCUT (19:06)
--- NOTE | 2022-04-29 19:38 | PC.NURSE ---
Dr. Camejo verbally ordered Lactulose to be given at around 1800. If patient does not have a bowel movement by 1999 Dr. Camejo ordered a Milk of Molassess to be given
[2022-04-30] VITALS (14 sets, daily range): BP systolic 125–165; BP diastolic 70–90; PULSE 95–129; RESP 16–18; TEMP 36.2–36.9; O2SAT 94–96
[2022-04-30] MEDS: pantoprazole 40 mg SDV IVP ×2 (01:29→12:27)
[2022-04-30] MEDS: piperacillin-tazobactam 3.375 GM in sodium chloride 0.9% (plus) 50 ML IV ×2 (01:29→09:52)
[2022-04-30] MEDS: oxyCODONE-APAP 5-325 mg Tablet 1 TAB PO ×4 (01:56→20:13)
[2022-04-30 06:54] LABS: Blood Urea Nitrogen 9 mg/dL (8-23); Calcium 9.3 mg/dL (8.5-10.5); Carbon Dioxide 25 mmol/L (22-29); Chloride 105 mmol/L (98-107); Glucose 129 mg/dL (65-115); Magnesium 1.8 mg/dL (1.7-2.3); Osmolality Calculated 296 mOsm/kg (285-295); Sodium 143 mmol/L (136-145)
[2022-04-30 07:02] LABS: Anion Gap 16.4 (5-19); Potassium 3.4 mmol/L (3.5-5.1)
[2022-04-30] MEDS: losartan 50 mg Tablet PO (09:50)
[2022-04-30] MEDS: levothyroxine 25 mcg Tablet PO (09:50)
[2022-04-30] MEDS: amlodipine 10 mg Tablet PO (09:52)
[2022-04-30] MEDS: hydroCHLOROthiazide 25 mg Tablet 12.5 MG PO (09:52)
--- NOTE | 2022-04-30 10:21 | P.PN_ITS ---
Subjective Subjective: Seen this morning. Patient is comfortable with fentanyl patch at this time. Planning to go home with hospice tomorrow. Discussed CODE STATUS but patient is undecided at this time. Had a bowel movement this morning. Vitals/I&O/Wt Last Vital Signs Temp 97.8 F 04/30/22 08:00 Pulse 98 04/30/22 08:00 Resp 18 04/30/22 08:00 BP 158/89 04/30/22 09:50 Pulse Ox 95 04/30/22 08:00 O2 Del Method 04/30/22 08:00 O2 Flow Rate 3 04/27/22 16:31 04/29/22 04/30/22 04/30/22 22:59 06:59 14:59 Intake Total 1660 / 1900 50 / 1950 240 / 240 Output Total / Balance 1660 / 1900 48 / 1948 240 / 240 Physical Exam Const: COMMON NORMALS: no acute distress and patient oriented x3 HENMT: COMMON NORMALS: normocephalic HEAD & SCALP: normocephalic Eye: COMMON NORMALS: Equal, round and reactive pupils present PUPIL: Yes Equal, round and reactive pupils present Neck/C-Spine: COMMON NORMALS: no JVD Resp: COMMON NORMALS: normal respiratory effort, No retractions, No use of accessory muscles and clear to auscultation bilaterally AUSCULTATION: clear to auscultation bilaterally Cardio: COMMON NORMALS: no JVD, regular rate, regular rhythm, S1 normal heart sound present and S2 normal heart sound present RATE: regular rate RHYTHM: regular rhythm HEART SOUNDS: S1 normal heart sound present and S2 normal heart sound present GI: COMMON NORMALS: Soft to palpation PALPATION: Yes Soft to palpation OTHER: Abdomen soft, mainly nontender with mild tenderness on right upper quadrant area, normoactive bowel sounds, no guarding, no rebound, no rigidity Extremity: COMMON NORMALS: no clubbing, cyanosis or edema, no calf tenderness and no pedal edema Neuro: COMMON NORMALS: patient oriented x3, CN's II-XII intact bilaterally and moves all extremities Psych: COMMON NORMALS: mental status grossly normal Data : 04/29/22 05:15 04/30/22 05:11 A&P Assessment and plan (1) Abdominal pain: (2) Nausea & vomiting: (3) Abdominal pain: (4) Gastritis: (5) Intractable abdominal pain: (6) Intractable nausea and vomiting: (7) Abdominal mass, right upper quadrant: Plan Pancreatic 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 Large mass at pancreatic head invading into rosemary hepa tis. Lesion seen on adrenal gland as well. Mets in liver. CEA 300, CA 19?9 7500. ?Discussed with radiology and oncology. Patient status post liver biopsy today. Pathology pending. -Blood cultures negative to date. Urine growing gram-negative rods. -Lovenox for DVT prophylaxis -Full code Zosyn as above for UTI -Mediport placed. ? Patient had liver biopsy 04/26 Start on GI soft diet. Optimize pain control oxycodone every 4-6 hours as needed for breakthrough. Stop Dilaudid. Stop morphine. Stop OxyContin. We will start her on fentanyl patch [address] Vences saw patient. Consult note complete. Pt has 25% survival chance. Patient now thinking about hospice. She will let us know her decision DC fluids Breast biopsy complete. Patient to go home with hospice on Sunday. replete potassium today recheck bmp in afternoon Full code DVT prophylaxis SCDs. lovenox 40 daily Did try to address CODE STATUS with the patient but she is undecided at this t kevin. We will keep her full code. Attestations Medical Necessity Statement*: Home with hospice on Sunday. Coding Level of Care Code Acute Position Clerk for g Fwd Diagnoses Abdominal pain R10.9 Nausea & vomiting R11.2 Abdominal pain R10.9 Gastritis K29.70 Intractable abdominal pain R10.9 Intractable nausea and vomiting R11.2 Abdominal mass, right upper quadrant R19.01
--- NOTE | 2022-04-30 12:10 | PC.SOCIAL ---
IMM Update pg 2 of IMM updated and reviewed w patient. Copy provided. Copy in chart dated and initialed.
[2022-04-30] MEDS: potassium chloride oral liq 20 mEq/15 mL UDC 40 MEQ PO (12:58)
[2022-04-30] MEDS: enoxaparin 40 mg/0.4 mL Syringe SUBCUT (18:55)
[2022-04-30] MEDS: sennosides-docusate Tablet 1 TAB PO (18:55)
[2022-05-01] VITALS (10 sets, daily range): BP systolic 129–140; BP diastolic 60–74; PULSE 88–110; RESP 18–24; TEMP 36.3–36.6; O2SAT 91–96
[2022-05-01] MEDS: pantoprazole 40 mg SDV IVP (00:30)
[2022-05-01] MEDS: oxyCODONE-APAP 5-325 mg Tablet 1 TAB PO ×3 (00:44→13:33)
[2022-05-01] MEDS: ondansetron 2 mg/ML SDV 2 mL 4 MG IVP ×2 (00:47→06:47)
[2022-05-01] MEDS: acetaminophen 325 mg Tablet 650 MG PO (03:11)
[2022-05-01] MEDS: metoclopramide 5 mg/mL SDV 2 mL IVP (03:15)
[2022-05-01] MEDS: hydroCHLOROthiazide 25 mg Tablet 12.5 MG PO (09:17)
[2022-05-01] MEDS: amlodipine 10 mg Tablet PO (09:17)
[2022-05-01] MEDS: sennosides-docusate Tablet 1 TAB PO (09:17)
[2022-05-01] MEDS: losartan 50 mg Tablet PO (09:18)
[2022-05-01] MEDS: levothyroxine 25 mcg Tablet PO (09:18)
--- NOTE | 2022-05-01 10:38 | PC.SOCIAL ---
Natiivdad Hoover MANUAL ARTS THERAPIST Hospice Team visited with patient about hospice admission later today. Patient is excited to go home. Hospice nurse will admit patient today upon discharge.
--- NOTE | 2022-05-01 11:19 | PM.DCS ---
Discharge Providers Date of Admission: 04/23/22 11:47 Date of Discharge: May 01, 2022 Attending Provider at Admission: Reinaldo Bearden MD Attending Provider at Discharge: Reinaldo Bearden MD Primary Care Provider: Remberto Black DO Diagnoses at Discharge Discharge Diagnosis (1) Abdominal pain: Status: Acute (2) Nausea & vomiting: Status: Acute (3) Abdominal pain: Status: Acute (4) Gastritis: Status: Acute (5) Intractable abdominal pain: Status: Acute (6) Intractable nausea and vomiting: Status: Acute (7) Abdominal mass, right upper quadrant: Status: Acute Reason for Visit Reason for Visit: N/V WEAKNESS Hospital Course Hospital Course Alexus Crowley is a 81 year old female recently diagnosed with liver mass, who has been set up in [place] for a potential biopsy, hypothyroidism, who presents to [facility] due to recurrent abdominal pain, intractable nausea, vomiting, and pain.? Patient tells me that that here in March she was diagnosed with a liver and or pancreatic mass, she was supposed to be transferred up to [place], however due to bed situation she was not, she is set up to get an outpatient biopsy in [place] of the mass.? However has not had a chance to get a biopsy as of yet.? She presents [facility] as she continues to have severe right upper quadrant pain, nausea, vomiting, poor oral intake.? She denies any jaundice, no bloody or black stools, no lightheadedness, dizziness. 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 Patient was discharged on home hospice. Physical Exam Const: COMMON NORMALS: no acute distress and patient oriented x3 Resp: COMMON NORMALS: normal respiratory effort, No retractions, No use of accessory muscles and clear to auscultation bilaterally AUSCULTATION: clear to auscultation bilaterally Cardio: COMMON NORMALS: regular rate, regular rhythm, S1 normal heart sound present and S2 normal heart sound present RATE: regular rate RHYTHM: regular rhythm HEART SOUNDS: S1 normal heart sound present and S2 normal heart sound present GI: COMMON NORMALS: Normal to inspection, nondistended, normoactive bowel sounds present, non-tender and no masses Extremity: COMMON NORMALS: no pedal edema Neuro: COMMON NORMALS: patient oriented x3 Psych: COMMON NORMALS: mental status grossly normal Discharge Data Studies Completed and Pending Completed Studies During Hospitalization Category Date Time Status CT abdomen pelvis w con* [id number] Stat Cat Scan 04/23/22 11:[address] head wo con* [id number] Stat Cat Scan 04/23/22 16:32 Completed CXRP [XR chest 1V portable [id number]] Routine Exams 04/27/22 15:59 Completed XR chest 1V portable [id number] Routine Exams 04/26/22 16:37 Completed XR chest 1V portable [id number] Stat Exams 04/23/22 11:59 Completed MR MRCP [id number] Stat MRI 04/23/22 16:27 Completed Pathology: Surgical [PTH] Routine Pth 04/26/22 08:57 Completed US biopsy liver [id number] Routine Ultrasound 04/26/22 08:00 Completed US gall bladder [id number] Stat Ultrasound 04/23/22 16:27 Completed Pending at discharge Category [place] [id number] Routine Ultrasound 04/28/22 13:00 Taken Radiology Impressions Abdomen/Pelvis CT 04/23/22 11:59 IMPRESSION: 1. 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 The soft tissue component extends into the gallbladder neck region and probably into the periportal/caudate hepatic parenchyma with obstruction of the intrahepatic bile ducts at the hepatic hilar level. Another large intrahepatic lesion is noted in the left lobe may represent additional area of tumor extension or metastatic disease/multifocal malignancy such as cholangiocarcinoma. There is regional vascular involvement as described above. Primary malignancy arising from the pancreatic head is much less likely. No pancreatic ductal dilatation. 2. Solid subcutaneous soft tissue nodule in the anterior right upper quadrant and left adrenal mass, suspicious for metastatic disease. 3. Nonacute aortic findings as above. 4. Coronary calcification. Cholangiopancreatography MRI 04/23/22 16:27 IMPRESSION: 1. No acute abdominal abnormality identified. Fairly mild dilation of left intrahepatic bile ducts. 2. No changes in malignant lesions of abdomen compared with the CT scan. Gallbladder Ultrasound 04/23/22 16:27 IMPRESSION: 1. Neoplastic process within the left hepatic as noted on CT exam same day earlier. 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 The extent and tumor size is difficult to assess on this exam due to bowel gas. The findings are probably unchanged versus recent CT exam which demonstrated neoplastic process, most likely arising from the gallbladder with probable invasion into the liver with hepatic metastasis or multifocal hepatic lesions. 2. Poorly visualized pancreas. 3. Partially visualized proximal extrahepatic bile duct with no significant dilatation. Mild intrahepatic biliary dilatation was noted on recent CT. 4. Moderate gallbladder distension with echogenic contents suggesting tumefactive sludge and/or calculi. It should be noted that cystic duct obstruction may be present in this setting due to neoplastic process rather than otherwise typical presentation of acute cholecystitis. Severe right upper quadrant region pain may be related to neoplastic process rather than typical sonographic Bazzi sign. Head CT 04/23/22 16:32 IMPRESSION: No acute intracranial abnormality. See discussion above. Liver Biopsy Ultrasound 04/26/22 08:00 IMPRESSION: Uncomplicated ultrasound guided liver biopsy. C-Arm Fluoroscopy 04/27/22 15:43 Impression: Left Port-A-Cath insertion. Chest X-Ray 04/27/22 15:59 IMPRESSION: 1. No acute findings. 2. Proper positioning of left chest port. Laboratory Results WBC 5.6 10^3/uL (4.0-10.0) 04/29/22 05:15 RBC 3.88 10^6/uL (4.1-5.3) L 04/29/22 05:15 Hgb 11.3 g/dL (11.5-15.3) L 04/29/22 05:15 Hct 36.3 % (37.0-47.0) L 04/29/22 05:15 MCV 93.6 fl (81-99) 04/29/22 05:15 MCH 29.1 pg (28.0-34.0) 04/29/22 05:15 MCHC 31.1 g/dL (30.0-36.0) 04/29/22 05:15 RDW 14.6 % (12.1-15.1) 04/29/22 05:15 Plt Count 230 10^3/cmm (130-400) 04/29/22 05:15 MPV 10.8 fL (7.4-10.4) H 04/29/22 05:15 Neut % (Auto) 72.2 % 04/29/22 05:15 Lymph % (Auto) 14.2 % 04/29/22 05:15 Dolores % (Auto) 9.9 % 04/29/22 05:15 Eos % (Auto) 2.5 % 04/29/22 05:15 Baso % (Auto) 0.7 % 04/29/22 05:15 Neut # (Auto) 4.00 10^3/uL (1.8-7.7) 04/29/22 05:15 Lymph # (Auto) 0.8 10^3/uL (0.8-4.8) 04/29/22 05:15 Dolores # (Auto) 0.6 10^3/uL (0.2-0.9) 04/29/22 05:15 Eos # (Auto) 0.1 10^3/uL (0.0-0.8) 04/29/22 05:15 Baso # (Auto) 0.0 10^3/uL (0.0-0.1) 04/29/22 05:15 Nucleated RBC % (auto) 0 % 04/29/22 05:15 Nucleated RBCs # 0.0 /100WBC 04/29/22 05:15 PT 15.20 SECONDS (12.1-14.9) H 04/23/22 18:09 INR 1.17 (0.8-1.2) 04/23/22 18:09 Sodium 143 mmol/L (136-145) 04/30/22 05:11 Potassium 3.4 mmol/L (3.5-5.1) L 04/30/22 05:11 Chloride 105 mmol/L (98-107) 04/30/22 05:11 Carbon Dioxide 25 mmol/L (22-29) 04/30/22 05:11 Anion Gap 16.4 (5-19) 04/30/22 05:11 BUN 9 mg/dL (8-23) 04/30/22 05:11 Creatinine 0.4 mg/dL (0.5-0.9) L 04/30/22 05:11 GFR Calculation Not Reportable 04/30/22 05:11 Glucose 129 mg/dL (65-115) H 04/30/22 05:11 Estimat Average Glucose 131 04/23/22 18:09 Hemoglobin A1c 6.2 % (4.0-6.0) H 04/23/22 18:09 Calculated Osmolality 296 mOsm/kg (285-295) H 04/30/22 05:11 Lactate 1.4 mmol/L (0.5-2.2) 04/23/22 18:09 Calcium 9.3 mg/dL (8.5-10.5) 04/30/22 05:11 Phosphorus 2.2 mg/dL (2.5-4.5) L 04/27/22 05:52 Magnesium 1.8 mg/dL (1.7-2.3) 04/30/22 05:11 Total Bilirubin 0.5 mg/dL (0.15-1.2) 04/25/22 04:18 Direct Bilirubin 0.30 mg/dL (0.00-0.30) 04/23/22 18:09 Indirect Bilirubin 0.20 04/23/22 18:09 GGT 230 U/L (5-36) H 04/23/22 18:09 AST 36 U/L (0-32) H 04/25/22 04:18 ALT 9 U/L (0-33) 04/25/22 04:18 Alkaline Phosphatase 113 U/L (35-105) H 04/25/22 04:18 Ammonia 57 umol/L (11-51) H 04/23/22 18:09 Troponin T Baseline 48 ng/L (0-10) H 04/23/22 12:37 Troponin T 120 Minute 45.91 ng/L (0-10) H 04/23/22 14:39 Delta Troponin T -2.09 ABS# (0-10) L 04/23/22 14:39 C-Reactive Protein 41.5 mg/L (0.0-4.9) H 04/23/22 18:09 Total Protein 5.7 g/dL (6.6-8.7) L 04/25/22 04:18 Albumin 2.7 g/dL (3.5-5.2) L 04/25/22 04:18 Globulin 3.0 g/dL (1.3-4.6) 04/25/22 04:18 Lipase 35 U/L (13-60) 04/23/22 12:37 Carcinoembryonic Ag 301.5 ng/mL (0.0-4.7) H 04/23/22 18:09 CA 19-9 Antigen 7547 U/mL (0-35) H 04/23/22 18:09 Procalcitonin 0.05 ng/mL (0-0.5) 04/23/22 18:09 TSH 1.34 uIU/mL (0.27-4.20) 04/23/22 18:09 Urine Color Yellow (Yellow) 04/23/22 13:07 Urine Appearance Hazy (CLEAR) A 04/23/22 13:07 Urine pH 6.5 (5-7) 04/23/22 13:07 Ur Specific [place] 1.015 (1.005-1.030) 04/23/22 13:07 Urine Protein Neg (Negative) 04/23/22 13:07 Urine Glucose (UA) Norm (Normal) 04/23/22 13:07 Urine Ketones 1+ (Negative) H 04/23/22 13:07 Urine Blood Neg (Negative) 04/23/22 13:07 Urine Nitrate Positive (Negative) H 04/23/22 13:07 Urine Bilirubin Neg (Negative) 04/23/22 13:07 Urine Urobilinogen 8 mg/dL (Negative) H 04/23/22 13:07 Ur Leukocyte Esterase 1+ (Negative) H 04/23/22 13:07 Urine RBC None /hpf (0-2) 04/23/22 13:07 Urine WBC 15-25 /hpf (0-5) H 04/23/22 13:07 Ur Squamous Epith Cells 5-10 /hpf (0-5) H 04/23/22 13:07 Amorphous Sediment Not Reportable 04/23/22 13:07 Urine Bacteria 3+ /hpf (NONE) H 04/23/22 13:07 Serum Ketones Positive (Negative) H 04/23/22 18:09 Hepatitis A IgM Ab Non-reactive (Nonreactive) 04/23/22 18:09 Hep Bs Antigen Non-reactive (Nonreactive) 04/23/22 18:09 Hep B Core IgM Ab Non-reactive (Nonreactive) 04/23/22 18:09 Hepatitis C Antibody Non-reactive (Nonreactive) 04/23/22 18:09 Vitals Last Vital Signs Temp 97.4 F L 05/01/22 11:05 Pulse 110 H 05/01/22 11:05 Resp 18 05/01/22 11:05 BP 140/60 05/01/22 11:05 Pulse Ox 96 05/01/22 11:05 O2 Del Method 05/01/22 08:18 O2 Flow Rate 3 04/30/22 08:00 Discharge Plan Discharge Patient Disposition: Hospice - Home Condition: Stable Prescriptions: New amlodipine 10 mg Tablet 10 mg PO DAILY 30 Days Qty: 30 0RF Continued valsartan-hydrochlorothiazide 160-12.5 mg tablet 1 tab PO DAILY montelukast 10 mg tablet 10 mg PO DAILY fenofibrate micronized 200 mg capsule 200 mg PO DAILY levothyroxine 25 mcg capsule 25 mcg PO DAILY aspirin 325 mg Tablet 325 mg PO DAILY Discontinued hydrocodone-acetaminophen 5-325 mg tablet 1 - 2 tab PO Q4H PRN (Reason: pain) 14 Days Qty: 120 0RF Rx Instructions: for cancer pain Discharge Orders: Discharge Order (Routine); Ordered 05/01/22 Ordered By: Reinaldo Bearden Referrals: [facility]) [Outside] Dennis Bullard DO [Physician] - 2 weeks Aguilar Vences MD [Hospitalist] - 04/28/22 8:00 am Remberto Black DO [Primary Care Provider] - 05/09/22 10:50 am Discharge Diet: Regular Discharge Activity: Resume usual activity Discharge Attestations Time Spent in Discharge Care*: less than 30 min Quality Metrics Clinical Quality Measures [ No reported AMI, CVA or VTE this stay] Coding Level of Care Code Acute Chg FW DC note Diagnoses Abdominal pain R10.9 Nausea & vomiting R11.2 Abdominal pain R10.9 Gastritis K29.70 Intractable abdominal pain R10.9 Intractable nausea and vomiting R11.2 Abdominal mass, right upper quadrant R19.01
[2022-05-03 13:07] LABS: PD-L1 (Clone 22C3) by IHC BBPL See Report
== END 2022-05-01 13:48 | disposition hospice, home (50) | DRG 436 ==
LOC: ER 13:01 → MEDSURG 18:11
PROVIDERS: Internal Medicine; Radiology Neuroradiology; Surgery; Admitting Provider Family Medicine; Emergency Provider Emergency Medicine; PCP Family Medicine; Visit Provider Family Medicine
PROC: 0F923ZX Drainage of Left Lobe Liver, Percutaneous Approach, Diagnostic (ICD-10-PCS; principal; 2022-04-26 08:00)
PROC: 0JH63XZ Insertion of Tunneled Vascular Access Device into Chest Subcutaneous Tissue and Fascia, Percutaneous Approach (ICD-10-PCS; principal; 2022-04-27 14:10)
DX: C25.0 Malignant neoplasm of head of pancreas (principal); C78.7 Secondary malignant neoplasm of liver and intrahepatic bile duct; C79.72 Secondary malignant neoplasm of left adrenal gland; E03.9 Hypothyroidism, unspecified; I10 Essential (primary) hypertension; C50.411 Malignant neoplasm of upper-outer quadrant of right female breast; G89.3 Neoplasm related pain (acute) (chronic); K59.00 Constipation, unspecified
CPT/HCPCS: 19083; 36415; 47000; 70450; 71045; 74177; 74181; 76000; 76705; 76942; 77001; 80048; 80053; 80074; 81001; 82009; 82140; 82247; 82248; 82378; 82977; 83036; 83605; 83690; 83735; 84100; 84145; 84443; 84484; 85025; 85610; 86140; 86301; 87040; 87077; 87086; 87186; 88305; 88307; 88341; 88342; 88361; 88374; 93005; 94760; 96372; 96374; 96375; 97166; 99152; C1788; C9113; J1170; J1644; J1650; J2250; J2270; J2405; J2543; J2704; J2765; J3010; J3411; J3475; J3480; J7030; J7040; Q9967

== ENCOUNTER 2022-04-28 | Oncology outpatient (recurring) (ONCR) | payer MEDICARE, OTHER, SELFPAY ==
[2022-05-04 09:31] LABS: Breast Profile ER,PR,HER2,Ki-6 See Report
== END 2022-05-15 23:59 | disposition home or self-care (01) ==
LOC: ONCMED 05-08 08:52
PROVIDERS: PCP Family Medicine; Visit Provider Internal Medicine Medical Oncology
DX: C50.411 Malignant neoplasm of upper-outer quadrant of right female breast (principal)
CPT/HCPCS: 88305; 88361; 88374